=== PATIENT | female | born 1990 | race Caucasian/White ===

== ENCOUNTER → 2020-01-03 12:25 | Outpatient (BNVA) | payer SELFPAY | PROVIDERS: Family Provider Nurse Practitioner Family; PCP Family Medicine; Visit Provider Nurse Practitioner Family | DX: J32.9 Chronic sinusitis, unspecified (principal) | CPT/HCPCS: 87804 ==

== ENCOUNTER 2020-01-10 19:11 | Emergency (ER) | payer SELFPAY ==
--- NOTE | 2020-01-10 19:13 | XR_ITS ---
WS: [id number] PROCEDURE: XR chest 2V* [id number] CLINICAL INFORMATION: cough COMPARISON: 010 FINDINGS: Heart: Normal cardiac silhouette. Lungs: Lungs are clear. No consolidation or pleural fluid. No acute pulmonary infiltrates. Bones: Normal visualized bony structures. XR/XR chest 2V* [id number] IMPRESSION: Normal chest
[2020-01-10 19:15] VITALS: BP 159/112; PULSE 85; RESP 19; TEMP 37.2; O2SAT 97; BMI 41.3
--- NOTE | 2020-01-10 19:22 | ED_ITS ---
HPI - SOB/Dyspnea General: Chief Complaint: Shortness of Breath/Dyspnea Stated Complaint: cough Time Seen by Provider: 01/10/20 19:21 Source: patient Mode of arrival: ambulatory Limitations: no limitations History of Present Illness: HPI Narrative: Patient comes in today with complaints of cough fever and chills on and off for the last 2 weeks. Patient reports that about a week ago she was seen at [facility] and was treated with amoxicillin for an upper respiratory infection. Patient reports that fever went away but over the last 2 days she is developed a fever again and her symptoms of cough and congestion increased again. Patient appears mildly unwell. Patient denies any chronic medical illnesses and denies asthma. Patient reports that her daughters have been ill with a cold before she got sick both times. Review of Systems General: Reports: 10 or more systems reviewed and unremarkable except in HPI and below ENMT: Reports: nasal congestion Resp: Reports: non-productive cough PFSH ED PFSH: Statuses (acute, chronic, etc) shown below reflect problem list status as previously entered and may not be historically accurate Social History (Updated 01/03/20 @ 10:29 by Mita Starks LPN, RT) Smoking and tobacco status: former smoker Quit status (tobacco): has quit using tobacco Year quit tobacco: 2014 Second hand smoke exposure: No Alcohol intake: never Lives independently: Yes Housing: House Marital status: Single Current occupational status: employed Current occupation: [employer] History of recent travel: No Current gender identity: Female Female Reproductive History: Date of last menstrual period: 01/06/20 Physical Exam Const: COMMON NORMALS: no apparent distress and oriented x3 GENERAL APPEARANCE: cooperative HENMT: COMMON NORMALS: normocephalic, external ears normal, EAC's normal, TM's normal bilaterally and external nose normal HEAD & SCALP: normal to inspection and normocephalic FACE & SINUS: normal facial exam NOSE: external nose normal GENERAL EAR: hearing not grossly impaired EXTERNAL E AR: Yes external ears normal EXTERNAL AUDITORY CANAL: EAC's normal TYMPANIC MEMBRANE: TM's normal bilaterally MOUTH: oral and palatal mucosa normal THROAT: posterior oropharynx abnormal erythema Eye: COMMON NORMALS: PERRL and EOMs intact bilaterally PUPIL: Yes PERRL Neck/C-Spine: COMMON NORMALS: full ROM and no lymphadenopathy Lymph: LYMPHATIC: no lymphedema noted Chest: COMMONS NORMALS: inspection of chest normal and palpation of chest normal Resp: COMMON NORMALS: normal respiratory effort AUSCULTATION: diminished lung sounds Cardio: COMMON NORMALS: regular rate and regular rhythm RATE: regular rate RHYTHM: regular rhythm GI: COMMON NORMALS: normal to inspection, nondistended, normoactive bowel sounds and non-tender : COMMON NORMALS: Yes no CVA tenderness BLADDER/KIDNEY EXAM: Yes no CVA tenderness Back/Pelvis: COMMON NORMALS: no CVA tenderness and thoracic and lumbar spine normal to inspection Extremity: COMMON NORMALS: normal to inspection GENERAL: No edema Neuro: COMMON NORMALS: oriented x3, moves all extremities and no focal motor deficits Psych: COMMON NORMALS: mental status grossly normal and cooperative Skin: COMMON NORMALS: no rashes or lesions noted GENERAL SKIN EXAM: no rashes or lesions noted Course Vital Signs: Vital signs: Vital Signs Temperature 98.9 F 01/10/20 19:15 Pulse Rate 94 01/10/20 20:12 Respiratory Rate 20 H 01/10/20 20:12 Blood Pressure 159/112 01/10/20 19:15 Pulse Oximetry 99 01/10/20 20:12 MDM - SOB/Dyspnea MDM Narrative: Medical decision making narrative: Patient comes in today with cough and congestion for last 2 weeks. Patient describes 2 separate incidents of illness. Patient reports that her daughter was similarly ill over the last 2 weeks. On exam patient has some decreased lung sounds. Skin is warm and dry color is pink. Differential diagnosis includes pneumonia, influenza, bronchitis, asthma. X-ray noted no infiltrates. Flu test was positive for type B flu. We dosed patient with dexamethasone 10 mg for bronchial airway sounds. Patient was encouraged to drink plenty of fluids continue with Tylenol and ibuprofen. Patient reports understanding agreed to plan. Lab Data: Labs: Lab Results 01/10/20 Range/Units 20:05 Influenza Type A A g Negative (Negative) POC Influenza B Ag Positive H (Negative) Discharge Plan Discharge Patient Disposition: Home, Self-Care Clinical Impression: Influenza Condition: Stable Prescriptions: New oseltamivir 75 mg capsule 75 mg PO BID 5 Days Qty: 10 RF: 0 Discharge Orders: Discharge Order (Routine); Ordered 01/10/20 Ordered By: Kurt Sesay Referrals: Mita Patel FNP [Family Provider] - Edilia Amos MD [Primary Care Provider] - Discharge Diet: Usual diet Discharge Activity: Increase activity as tolerated Patient Instructions: Influenza (ED) Activity Restrictions/Additional Instructions: drink plenty of fluids Acetaminophen and ibuprofen for pain and fever Medications as directed Follow-up as needed Return to ER for increased difficulty breathing or new concerns Stand Alone Forms: Work/School Release Coding Level of Care Code 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
--- NOTE | 2020-01-10 19:41 | PC.NURSE ---
pt sitting in chair. no needs at this time.
[2020-01-10] MEDS: ipratropium-albuterol 3 mL Neb INHALATION (20:10)
[2020-01-10 20:12] VITALS: PULSE 94; RESP 20; O2SAT 99
[2020-01-10 20:29] LABS: Influenza A by IFA Negative (Negative); Influenza B by IFA Positive (Negative)
[2020-01-10] MEDS: dexamethasone 10 mg/mL INJ IM (20:51)
[2020-01-10 20:52] VITALS: BP 116/62; PULSE 78; RESP 16; O2SAT 98
== END 2020-01-10 20:55 | disposition home or self-care (01) ==
PROVIDERS: Emergency Provider Nurse Practitioner Family; Family Provider Nurse Practitioner Family; PCP Family Medicine
DX: J11.1 Influenza due to unidentified influenza virus with other respiratory manifestations (principal); Z87.891 Personal history of nicotine dependence
CPT/HCPCS: 71046; 87804; 94640; 96372; 99282; 99283; J1100

== ENCOUNTER → 2020-02-21 14:47 | Outpatient (BNVA) | payer SELFPAY | PROVIDERS: Family Provider Nurse Practitioner Family; PCP Family Medicine; Visit Provider Family Medicine | DX: J02.9 Acute pharyngitis, unspecified (principal); M54.32 Sciatica, left side | CPT/HCPCS: 87081; 87880 ==

== ENCOUNTER 2020-12-04 19:56 | Emergency (ER) | payer SELFPAY ==
[2020-12-04 20:48] VITALS: BP 160/98; PULSE 71; RESP 16; TEMP 36.3; O2SAT 99; BMI 47.4
--- NOTE | 2020-12-04 21:54 | W.ED.ABDPA2 ---
HPI - Abdominal Pain General: Chief Complaint: Abdominal Pain Stated Complaint: upper right abdominal pain, hard to breathe Time Seen by Provider: 12/04/20 21:49 History of Present Illness: HPI narrative: Patient planes about abdominal pain since 0 200 yesterday. Said that is continued hurts throughout the day and hurts worse after she eats. Has no other history abdominal problems. Has felt nauseated but has not vomited. No fever chills. MD elicited complaint: abdominal pain Pertinent past history: none Onset (ago): day(s) Pain Consistency: constant Location: RUQ Severity: moderate Quality: stabbing Radiation: back Exacerbating factors: eating Relieving factors: nothing Associated Symptoms: Reports nausea; Denies chills and fever(s) Related Data: Date of Last Menstrual Period: 01/06/20 Review of Systems Const: Denies: fever(s), chills or body aches Eyes: Denies: change in vision or blurry vision ENMT: Denies: throat pain or nasal congestion Card: Denies: chest pain or dyspnea on exertion Resp: Denies: dyspnea, productive cough or non-productive cough GI: Reports: abdominal pain and nausea Musc: Denies: extremity pain Skin/Breast: Denies: rash Neuro: Denies: headache(s) Psych: Denies: anxiety or depression Aashish/Lymph: Denies: easy bruising PFS ED PFSH: Medical History (Updated 12/04/20 @ 23:43 by CARTER Song) Migraine Spinal stenosis of lumbar region Surgical History Hx of appendectomy Hx of tonsillectomy Social History Smoking and tobacco status: former smoker Quit status (tobacco): has quit using tobacco Year quit tobacco: 2014 Second hand smoke exposure: No Alcohol intake: never Lives independently: Yes Housing: House Marital status: Single Current occupational status: employed Current occupation: [employer] History of recent travel: No Current gender identity: Female Female Reproductive History: Date of last menstrual period: 01/06/20 Physical Exam Const: COMMON NORMALS: no acute distress, average body habitus and patient oriented x3 HENMT: COMMON NORMALS: normocephalic HEAD & SCALP: normal to inspection and normocephalic FACE & SINUS: normal facial exam Eye: COMMON NORMALS: conjunctivae normal GENERAL EYE: appearance normal, both eyes and all related structures CONJUNCTIVA: Yes conjunctivae normal Neck/C-Spine: COMMON NORMALS: no JVD Chest: COMMONS NORMALS: normal inspection of the chest Resp: COMMON NORMALS: normal respiratory effort and clear to auscultation bilaterally AUSCULTATION: clear to auscultation bilaterally Cardio: COMMON NORMALS: no JVD, regular rate and regular rhythm RATE: regular rate RHYTHM: regular rhythm GI: COMMON NORMALS: Normal to inspection, nondistended, normoactive bowel sounds present Extremity: COMMON NORMALS: normal to inspection and full ROM Neuro: COMMON NORMALS: patient oriented x3 Course Vital Signs: Vital signs: Vital Signs Temperature 97.3 F L 12/04/20 20:48 Pulse Rate 70 12/04/20 23:33 Respiratory Rate 12 12/04/20 23:33 Blood Pressure 148/73 12/04/20 23:33 Pulse Oximetry 99 12/04/20 23:33 MDM - Abdominal Pain MDM Narrative: Medical decision making narrative: Discussed lab and radiology results with Dr. Solorio. Reexamined patient patient basically pain-free not nauseated. Patient agrees to follow-up Dr. Schaefer as scheduled by the hospital. Lab Data: Labs: Lab Results 12/04/20 12/04/20 12/04/20 Range/Units 22:00 22:10 22:10 WBC 13.6 H (4.0-10.0) 10^3/ uL RBC 4.56 (4.1-5.3) 10^6/u L Hgb 13.1 (11.5-15.3) g/dL Hct 40.8 (37.0-47.0) % MCV 89.5 (81-99) fL MCH 28.7 (28.0-34.0) pg MCHC 32.1 (30.0-36.0) g/dL RDW 12.5 (12.1-15.1) % Plt Count 304 (130-400) 10^3/c mm MPV 10.6 H (7.4-10.4) fL Neut % (Auto) 71.7 % Lymph % (Auto) 19.7 % [place] % (Auto) 6.9 % Eos % (Auto) 1.0 % Baso % (Auto) 0.4 % Neut # (Auto) 9.72 H (1.8-7.7) 10^3/u L Lymph # (Auto) 2.7 (0.8-4.8) 10^3/u L [place] # (Auto) 0.9 (0.2-0.9) 10^3/u L Eos # (Auto) 0.1 (0.0-0.8) 10^3/u L Baso # (Auto) 0.1 (0.0-0.1) 10^3/u L Nucleated RBC % (a uto) 0 % Nucleated RBCs # 0.0 /100WBC Sodium 136 (136-145) mmol/L Potassium 3.4 L (3.5-5.1) mmol/L Chloride 100 (98-107) mmol/L Carbon Dioxide 28 (22-29) mmol/L Anion Gap 11.4 (5-19) BUN 16 (6-20) mg/dL Creatinine 0.8 (0.5-0.9) mg/dL GFR Calculation 83.7 L (90-130) mL/min Glucose 110 (65-115) mg/dL Calculated Osmolal ity 284 L (285-295) mOsm/k g Calcium 9.9 (8.5-10.5) mg/dL Total Bilirubin 0.3 (0.15-1.2) mg/dL AST 12 (0-32) U/L ALT 13 (0-33) U/L Alkaline Phosphata se 101 (35-105) IU/L Total Protein 7.6 (6.6-8.7) g/dL Albumin 4.3 (3.5-5.2) g/dL Globulin 3.3 (1.3-4.6) g/dL Lipase 36 (13-60) U/L HCG, Qual (Negative) Urine Color Yellow (Yellow) Urine Appearance Clear (CLEAR) Urine pH 5.0 (5-7) Ur Specific Gravit y 1.025 (1.005-1.030) Urine Protein Neg (Negative) Urine Glucose (UA) Norm (Normal) Urine Ketones Negative (Negative) Urine Blood Neg (Negative) Urine Nitrate Negative (Negative) Urine Bilirubin Neg (Negative) Urine Urobilinogen Norm (Negative) mg/dL Ur Leukocyte Sammie ase Negative (Negative) 12/04/20 Range/Units 22:10 WBC (4.0-10.0) 10^3/ uL RBC (4.1-5.3) 10^6/u L Hgb (11.5-15.3) g/dL Hct (37.0-47.0) % MCV (81-99) fL MCH (28.0-34.0) pg MCHC (30.0-36.0) g/dL RDW (12.1-15.1) % Plt Count (130-400) 10^3/c mm MPV (7.4-10.4) fL Neut % (Auto) % Lymph % (Auto) % [place] % (Auto) % Eos % (Auto) % Baso % (Auto) % Neut # (Auto) (1.8-7.7) 10^3/u L Lymph # (Auto) (0.8-4.8) 10^3/u L [place] # (Auto) (0.2-0.9) 10^3/u L Eos # (Auto) (0.0-0.8) 10^3/u L Baso # (Auto) (0.0-0.1) 10^3/u L Nucleated RBC % (a uto) % Nucleated RBCs # /100WBC Sodium (136-145) mmol/L Potassium (3.5-5.1) mmol/L Chloride (98-107) mmol/L Carbon Dioxide (22-29) mmol/L Anion Gap (5-19) BUN (6-20) mg/dL Creatinine (0.5-0.9) mg/dL GFR Calculation (90-130) mL/min Glucose (65-115) mg/dL Calculated Osmolal ity (285-295) mOsm/k g Calcium (8.5-10.5) mg/dL Total Bilirubin (0.15-1.2) mg/dL AST (0-32) U/L ALT (0-33) U/L Alkaline Phosphata se (35-105) IU/L Total Protein (6.6-8.7) g/dL Albumin (3.5-5.2) g/dL Globulin (1.3-4.6) g/dL Lipase (13-60) U/L HCG, Qual Negative (Negative) Urine Color (Yellow) Urine Appearance (CLEAR) Urine pH (5-7) Ur Specific Gravit y (1.005-1.030) Urine Protein (Negative) Urine Glucose (UA) (Normal) Urine Ketones (Negative) Urine Blood (Negative) Urine Nitrate (Negative) Urine Bilirubin (Negative) Urine Urobilinogen (Negative) mg/dL Ur Leukocyte Sammie ase (Negative) Discharge Plan Discharge Patient Disposition: Home Clinical Impression: Cholelithiasis Qualifiers: Cholelithiasis location: gallbladder Cholecystitis presence: without cholecystitis Biliary obstruction: without biliary obstruction Qualified Code(s): K80.20 - Calculus of gallbladder without cholecystitis without obstruction Condition: Stable Prescriptions: New hydrocodone-acetaminophen 5-325 mg tablet 1 tab PO TID PRN (Reason: pain) Qty: 10 RF: 0 Zofran 4 mg tablet 4 mg PO Q8H 3 Days Qty: 9 RF: 0 No Action ibuprofen 800 mg tablet 800 mg PO Q8H Qty: 30 RF: 0 dexamethasone sodium phosphate 4 mg/mL solution 4 mg IM ONCE Qty: 1 RF: 0 diclofenac sodium 75 mg tablet,delayed release (DR/EC) 75 mg PO BID PRN (Reason: pain) Qty: 60 RF: 0 Discharge Orders: Discharge ED (Routine); Ordered 12/04/20 Ordered By: Obie Schmitt Referrals: Mita Patel FNP [Primary Care Provider] - Discharge Diet: As Directed Discharge Activity: Resume usual activity Patient Instructions: Cholecystitis (ED) Activity Restrictions/Additional Instructions: Follow-up with medical provider as directed. Take medications as prescribed. Return to the ER or your medical provider if condition worsens. Please read and understand discharge instructions. If any questions ask please. Low-fat diet no grease. Follow-up with Dr. Elizondo as scheduled by the hospital they should be contacting you with an appointment. Coding Level of Care Code ED [employer] Manager for Montse Fwd Exam Comprehensive
--- NOTE | 2020-12-04 21:56 | CTR_ITS ---
PROCEDURE INFORMATION: Exam: CT Abdomen And Pelvis With Contrast Exam date and time: 12/04/2020 10:17 PM Age: 30 years old Clinical indication: Abdominal pain; Prior surgery; Surgery type: Appy; Patient HX: Epigastric pain with nausea; Additional info: Ruq pain, abdominal pain TECHNIQUE: Imaging protocol: Computed tomography of the abdomen and pelvis with intravenous contrast. Radiation optimization: All CT scans at this facility use at least one of these dose optimization techniques: automated exposure control; mA and/or kV adjustment per patient size (includes targeted exams where dose is matched to clinical indication); or iterative reconstruction. Contrast material: OMNI 300; Contrast volume: 95 ml; Contrast route: INTRAVENOUS (IV); COMPARISON: No relevant prior studies available. RADIATION DOSE METRICS: Total DLP (mGy-cm): 1797.13 FINDINGS: Liver: There is no focal abnormality within the liver. There is mild enlargement of the liver. Liver is approximately 22 cm in height. Gallbladder and bile ducts: Multiple calcified gallstones are present. There is mild gallbladder wall thickening which could represent cholecystitis. Correlation with clinical findings is suggested. Pancreas: The pancreas is normal. Spleen: The spleen is normal. Adrenal glands: The adrenal glands are normal. Kidneys and ureters: The kidneys are normal. There is no evidence of renal or ureteral calcifications. There is no evidence of hydronephrosis. Stomach and bowel: Unremarkable. No obstruction. No mucosal thickening. Appendix: Not identifiedThere is no evidence of colitis/diverticulitis. Intraperitoneal space: Unremarkable. No free air. No significant fluid collection. Vasculature: Unremarkable. No abdominal aortic aneurysm. Lymph nodes: Unremarkable. No enlarged lymph nodes. Urinary bladder: Unremarkable as visualized. Reproductive: Unremarkable as visualized. Bones/joints: There is bilateral L5 spondylolysis without spondylolisthesis. Soft tissues: Unremarkable. CT/CT abdomen pelvis w con* [id number] IMPRESSION: Cholelithiasis and possible cholecystitis. Radiation Dose CTDIVOL = (mGy): DLP = 1797.13 (mGy-cm)
[2020-12-04 22:12] VITALS: BP 156/86; PULSE 73; RESP 14; O2SAT 99
[2020-12-04] MEDS: lidocaine 2% viscous 15 ML, aluminum-mag hydrox-simethicon 30 ML, sucralfate oral liq 1 GM PO (22:15)
[2020-12-04] MEDS: sodium chloride 0.9% 1,000 ML 999 ML IV (22:18)
[2020-12-04 22:25] LABS: Add Urine Microscopic? NO
[2020-12-04 22:29] LABS: Basophils # 0.1 10^3/uL (0.0-0.1); Basophils % 0.4 %; Eosinophils # 0.1 10^3/uL (0.0-0.8); Hematocrit 40.8 % (37.0-47.0); Hemoglobin 13.1 g/dL (11.5-15.3); Lymphocytes # 2.7 10^3/uL (0.8-4.8); Lymphocytes % 19.7 %; Mean Corpuscular HGB Conc 32.1 g/dL (30.0-36.0); Mean Corpuscular Hemoglobin 28.7 pg (28.0-34.0); Mean Corpuscular Volume 89.5 fL (81-99); Mean Platelet Volume 10.6 fL (7.4-10.4); Monocytes # 0.9 10^3/uL (0.2-0.9); Monocytes % 6.9 %; Neutrophils # 9.72 10^3/uL (1.8-7.7); Neutrophils % 71.7 %; Nucleated Red Blood Cells % 0 %; Platelet Count 304 10^3/cmm (130-400); Red Blood Count 4.56 10^6/uL (4.1-5.3); Red Cell Distribution Width 12.5 % (12.1-15.1); White Blood Count 13.6 10^3/uL (4.0-10.0)
[2020-12-04 22:35] LABS: HCG Qualitative Urine. Negative (Negative)
[2020-12-04 22:36] LABS: Urine Color Yellow (Yellow)
[2020-12-04 22:37] LABS: Bilirubin Urine Neg (Negative); Blood Urine Neg (Negative); Glucose Urine UA Norm (Normal); Ketones Urine Negative (Negative); Leukocyte Esterase Urine Negative (Negative); Nitrate Urine Negative (Negative); Protein Urine Neg (Negative); Specific Gravity, Urine 1.025 (1.005-1.030); Urine Appearance Clear (CLEAR); Urobilinogen Urine Norm (Negative)
[2020-12-04] MEDS: ondansetron 2 mg/ML SDV 2 mL 4 MG IVP (22:40)
[2020-12-04] MEDS: ketorolac 30 mg/mL INJ IVP (22:42)
[2020-12-04 22:47] LABS: Alanine Aminotransferase 13 U/L (0-33); Albumin Level 4.3 g/dL (3.5-5.2); Alkaline Phosphatase 101 IU/L (35-105); Anion Gap 11.4 (5-19); Aspartate Amino Transferase 12 U/L (0-32); Blood Urea Nitrogen 16 mg/dL (6-20); Calcium 9.9 mg/dL (8.5-10.5); Carbon Dioxide 28 mmol/L (22-29); Chloride 100 mmol/L (98-107); Globulin 3.3 g/dL (1.3-4.6); Glomerular Filtration Rate 83.7 mL/min (90-130); Glucose 110 mg/dL (65-115); Lipase 36 U/L (13-60); Osmolality Calculated 284 mOsm/kg (285-295); Potassium 3.4 mmol/L (3.5-5.1); Sodium 136 mmol/L (136-145); Total Bilirubin 0.3 mg/dL (0.15-1.2); Total Protein 7.6 g/dL (6.6-8.7)
[2020-12-04] MEDS: iohexol 300 mg/mL 100 mL Btl IV (22:54)
[2020-12-04 23:33] VITALS: BP 148/73; PULSE 70; RESP 12; O2SAT 99
[2020-12-05] MEDS: HYDROcodone-acetaminophen 7.5-325 mg Tablet 1 TAB PO (00:03)
[2020-12-05 00:04] VITALS: BP 107/66; PULSE 84; RESP 12; O2SAT 98
--- NOTE | 2020-12-05 13:04 | DCPLANNER ---
manager domestic had message to schedule a follow up appointment for patient with general surgery. manager domestic emailed both Yaneth and Ana, patients information. Patients information will be printed and reviewed.
--- NOTE | 2020-12-10 08:13 | DCPLANNER ---
Patient has a follow up appointment scheduled for Wednesday, December 13, 2020 at 9:[address] Schaefer at [facility] General Surgery. Clinic will call patient with appointment information.
--- NOTE | 2020-12-31 08:05 | DCPLANNER ---
Patient had a follow up appointment scheduled fo r01.15. with general surgery - patient did attend appointment.
== END 2020-12-05 00:21 | disposition home or self-care (01) ==
PROVIDERS: Emergency Medicine; Emergency Provider Nurse Practitioner Family; PCP Nurse Practitioner Family
DX: K80.20 Calculus of gallbladder without cholecystitis without obstruction (principal); Z87.891 Personal history of nicotine dependence
CPT/HCPCS: 12345; 74177; 80053; 81003; 81025; 83690; 85025; 96361; 96374; 96375; 99283; J1885; J2405; J7030; Q9967

== ENCOUNTER → 2020-12-16 09:40 | Outpatient (BNVA) | payer SELFPAY | PROVIDERS: PCP Nurse Practitioner Family; Visit Provider Surgery | DX: Z11.59 Encounter for screening for other viral diseases (principal); K80.20 Calculus of gallbladder without cholecystitis without obstruction | CPT/HCPCS: 87635 ==

== ENCOUNTER 2020-12-18 13:53 | Day surgery (SDC) | payer SELFPAY ==
[2020-12-17 15:10] VITALS: BMI 47.1
[2020-12-18] VITALS (11 sets, daily range): BP systolic 105–158; BP diastolic 63–99; PULSE 57–95; RESP 16–26; TEMP 36.1–37.1; O2SAT 95–100
--- NOTE | 2020-12-18 12:44 | W.PM.OPSUD ---
Surgery/Procedure H&P Update DATE OF PROCEDURE: December 18, 2020 DATE H&P PERFORMED: 12/13/20 H&P UPDATE INFORMATION: I have reviewed H&P completed within last 30 days, I have examined patient prior to procedure and No changes to prior documentation PLANNED PROCEDURE: Operation Date: 12/18/20 15:25 Proposed Procedures p Laparoscopic Cholecystectomy 55924 K80.20(Not Applicable) - Tyler Schaefer MD
--- NOTE | 2020-12-18 14:21 | P.ANESASSM_ITS ---
Pre-Anesthetic Assessment Pre-Anesthetic Assessment: Height/Weight: Height 1.73 m Weight 140.614 kg Preop Diagnosis: Cholelithiasis Proposed Procedure: Operation Date: 12/18/20 15:25 Proposed Procedures p Laparoscopic Cholecystectomy 20585 K80.20(Not Applicable) - Tyler Schaefer MD Familial anesthetic complications: None Was Beta Kenia taken within 24 hours: N/A Last intake: NPO > 8hrs Social: Social History: No alcohol and No tobacco Exam: Pre-Anes Outpt Exam: alert, oriented x 3, clear to auscultation bilaterally and regular rate & rhythm Airway: Cervical ROM: WNL MP: 3 Dentition: Full CV/HEM: Comments: naturally slow heart rate Metabolic: Metabolic: Morbid obesity Anesthetic Plan: ASA status: 2 Anesthesia: General Risk of > 500 ml blood loss (7ml/kg in children): No PFSH Anesthesia PFSH: Medical History (Updated 12/13/20 @ 11:43 by Tyler Schaefer MD) Migraine Spinal stenosis of lumbar region Surgical History (Updated 12/18/20 @ 12:43 by Tyler Schaefer MD) Hx of appendectomy Hx of tonsillectomy Status post laparoscopic cholecystectomy (12/18/20) Social History Smoking and tobacco status: former smoker Quit status (tobacco): has quit using tobacco Year quit tobacco: 2014 Second hand smoke exposure: No Alcohol intake: never Lives independently: Yes Housing: House Marital status: Single Current occupational status: employed Current occupation: [employer] History of recent travel: No Current gender identity: Female Female Reproductive History: Date of last menstrual period: 01/06/20 Data Anesthesia Cardiac Studies: No Data to Display
[2020-12-18] MEDS: sodium chloride 0.9% 1,000 ML 30 ML IV (14:35)
[2020-12-18 14:37] LABS: OR HCG Qualitative Urine Negative (Negative)
--- NOTE | 2020-12-18 15:47 | PM.OP ---
Operative Report Date of procedure: December 18, 2020 Pre-op Diagnosis: Cholelithiasis Post-op diagnosis: same Procedure Done: Laparoscopic cholecystectomy Specimens removed/disposition: Gallbladder Surgeon: Tyler Schaefer Anesthesia: General Condition: stable Disposition: PACU Procedure: The patient was taken to the operating room and was intubated under general anesthesia. After the antibiotic had been administered, the abdomen was prepped and draped in a sterile manner. Using a #15 blade, a 1 centimeter infraumbilical curvilinear incision was made and using an open Preston technique the peritoneal cavity was entered. A 10 millimeter port was placed and 15 millimeters of pneumoperitoneum was created. A 10 millimeter, 30 degrees scope was then introduced. Three 5 millimeter ports were placed in the epigastric, midclavicular and the anterior axillary line two fingerbreadths below the costal margin on the right side under the direct visualization. Ratcheted forceps were introduced into the lateral most port and was used to retract the fundus of the gallbladder cephalad and using forceps the infundibulum of the gallbladder was retracted laterally. Using L-hook cautery the peritoneum overlying the Calot's triangle was opened medially and laterally until the cystic duct and the cystic artery were skeletonized. There was some bleeding from the posterior branch of the cystic artery which was controlled with a combination of clips and electrocautery. Dissection was carried along the body of the gallbladder and after ensuring critical view of safety, 4 clips applied on the cystic duct and 3 clips applied on the cystic artery and cut leaving, 3 clips on the remaining portion of the duct and 2 clips on the remaining portion of the artery. The rest of the gallbladder was dissected off the liver using L-hook cautery. There was no bleeding or bile leaking noted from the gallbladder fossa and the clips appeared to be in place. An EndoCatch bag was introduced to remove the gallbladder. All the ports were removed under direct visualization and there was no bleeding noted from the port sites. The fascia of the umbilicus was closed using [id number] 0 Vicryl sutures and the subcutaneous tissue was approximated using 3-0 Vicryl sutures. The skin at all four ports were closed using 4-0 Monocryl and Dermabond. A total of 10 millimeters of 0.5% Marcaine was infiltrated around the port sites. The patient was stable throughout the procedure.
[2020-12-18] MEDS: fentaNYL 50 mcg/mL INJ 2mL IVP ×2 (16:03→16:15)
[2020-12-18] MEDS: ondansetron 2 mg/ML SDV 2 mL 4 MG IVP (16:15)
[2020-12-18] MEDS: HYDROcodone-acetaminophen 5-325 mg Tablet 1 TAB PO (17:45)
--- NOTE | 2020-12-18 18:38 | ANE.PACU2 ---
Inpatient post-anesthesia follow up: Airway intact: Yes Vital signs: Temperature 98.7 F Pulse Rate 62 Respiratory Rate 18 Blood Pressure 111/68 Pulse Oximetry 98 Oxygen Delivery Me thod Room Air Oxygen Flow Rate 8 Fraction of Inspir ed Oxygen Hydration adequate: Yes Nausea and vomiting: No Pain level: 1 Mental status: Baseline
== END 2020-12-18 17:55 | disposition home or self-care (01) ==
LOC: OR 13:53
PROVIDERS: Anesthesiology; PCP Nurse Practitioner Family; Visit Provider Surgery
PROC: 0FT44ZZ Resection of Gallbladder, Percutaneous Endoscopic Approach (ICD-10-PCS; CPT 47562; principal; 2020-12-18 15:15)
DX: K80.10 Calculus of gallbladder with chronic cholecystitis without obstruction (principal); E66.01 Morbid (severe) obesity due to excess calories; Z68.42 Body mass index [BMI] 45.0-49.9, adult; Z87.891 Personal history of nicotine dependence
CPT/HCPCS: 47562; 12345; 81025; 84703; 88304; J0330; J0690; J1100; J1200; J1885; J2250; J2405; J2704; J2710; J3010; J3490; J7030

== ENCOUNTER → 2021-03-18 15:05 | Outpatient (BNVA) | payer SELFPAY | PROVIDERS: PCP Nurse Practitioner Family; Visit Provider Nurse Practitioner Family | DX: M79.604 Pain in right leg (principal); M79.671 Pain in right foot; M25.571 Pain in right ankle and joints of right foot | CPT/HCPCS: 73590; 73610; 73620 ==

== ENCOUNTER → 2021-04-02 09:06 | Outpatient (BNVA) | payer SELFPAY | PROVIDERS: PCP Nurse Practitioner Family; Visit Provider Nurse Practitioner Family | DX: M25.571 Pain in right ankle and joints of right foot (principal); M79.671 Pain in right foot | CPT/HCPCS: 73610; 73630 ==

== ENCOUNTER → 2021-05-09 11:59 | Outpatient (BNVA) | payer SELFPAY | PROVIDERS: PCP Nurse Practitioner Family; Visit Provider Nurse Practitioner Family | DX: J02.9 Acute pharyngitis, unspecified (principal); J01.00 Acute maxillary sinusitis, unspecified | CPT/HCPCS: 87071; 87880 ==

== ENCOUNTER → 2021-07-15 12:07 | Outpatient (BNVA) | payer OTHER, SELFPAY | PROVIDERS: PCP Nurse Practitioner Family; Visit Provider Family Medicine | DX: Z20.822 Contact with and (suspected) exposure to COVID-19 (principal) | CPT/HCPCS: 87635 ==

== ENCOUNTER → 2021-12-11 16:44 | Outpatient (BNVA) | payer BC, SELFPAY | PROVIDERS: PCP Nurse Practitioner Family; Visit Provider Nurse Practitioner Family | DX: Z20.822 Contact with and (suspected) exposure to COVID-19 (principal) | CPT/HCPCS: 87635 ==

== ENCOUNTER 2022-02-06 18:08 | Emergency (ER) | payer BC, MEDICAID, SELFPAY ==
[2022-02-06] VITALS (12 sets, daily range): BP systolic 105–142; BP diastolic 71–97; PULSE 66–94; RESP 16–18; TEMP 36.9; O2SAT 94–99; BMI 44.8
--- NOTE | 2022-02-06 19:20 | XRR_ITS ---
PROCEDURE INFORMATION: Exam: XR Chest Exam date and time: 02/06/2022 7:20 PM Age: 31 years old Clinical indication: Cough; Additional info: Fever, vomiting TECHNIQUE: Imaging protocol: XR of the chest. Views: 1 view. COMPARISON: CR XR chest 2V* [id number] 01/10/2020 7:47 PM FINDINGS: Lungs: Lungs are clear bilaterally. Pleural spaces: No pleural effusion. No pneumothorax. Heart/Mediastinum: The cardiac silhouette and mediastinal contours are unremarkable. Bones/joints: Unremarkable for age. Soft tissues: Patient has bilateral nipple piercings. XR/XR chest 1V portable [id number] IMPRESSION: 1. No acute cardiopulmonary process. 2. Incidental/nonacute findings are listed in the report.
--- NOTE | 2022-02-06 19:53 | W.ED.COVID ---
HPI - COVID General: Chief Complaint: COVID symptoms Stated Complaint: N\V Time Seen by Provider: 02/06/22 18:53 Source: patient Triage information: No fever, cough or shortness of breath. No known COVID + exposure last 14 days History of Present Illness: Healthy 31-year-old female presenting with symptoms of nausea, with vomiting that started today. She has had a sick young child at home with the stomach flu so she figured this was her problem. No sore throat. No cough. No congestion. No significant fever today. Some aches. MD complaint: has COVID symptoms Prior covid testing: no COVID 19 common symptoms: positive fatigue, body aches and vomiting; negative fever(s), chills, cough, non-productive cough, productive cough, dyspnea, headache(s), loss of sense of smell and/or taste, throat pain, nasal congestion or diarrhea COVID 19 other sytmptoms: negative chest pain Onset (ago): hour(s) Severity: moderate Pertinent comorbid conditions: obesity Treatment prior to arrival: none COVID Results: SARS-CoV-2 RNA (RT-PCR) Not detected (NOT DETECTED) 12/11/21 16:44 12/11/21 Nasal/Oral Coronavirus 2019 PCR Not detected 12/16/20 09:40 12/16/20 SARS-CoV-2 (PCR) Not detected (NOT DETECT) 02/06/22 18:45 02/06/22 Coronavirus Type 229E (PCR) Not detected (NOT DETECT) 02/06/22 18:45 02/06/22 Review of Systems Const: Reports: body aches and fatigue; Denies: fever(s) or chills ENMT: Denies: throat pain or nasal congestion Card: Denies: chest pain Resp: Denies: dyspnea, productive cough or non-productive cough GI: Reports: vomiting; Denies: diarrhea Neuro: Denies: headache(s) PFSH ED PFSH: Medical History Migraine Spinal stenosis of lumbar region Surgical History Hx of appendectomy Hx of tonsillectomy Status post laparoscopic cholecystectomy (12/18/20) Social History (Updated 01/14/22 @ 14:42 by Mita Starks LPN, RTMaggie Smoking and tobacco status: former smoker Quit status (tobacco): has quit using tobacco Year quit tobacco: 2014 Second hand smoke exposure: No Alcohol intake: never Lives independently: Yes Household members: children Housing: House Marital status: Single service: No Current occupational status: employed Current occupation: [employer] History of recent travel: No Current gender identity: Female Special sloan needs: No Female Reproductive History: Date of last menstrual period: 01/06/20 Physical Exam Const: GENERAL APPEARANCE: cooperative; not frail appearing NUTRITIONAL APPEARANCE: obese ORIENTATION/CONSCIOUSNESS: Yes awake, Yes oriented to person, Yes oriented to place and Yes oriented to time HENMT: COMMON NORMALS: normocephalic and atraumatic HEAD & SCALP: normocephalic and atraumatic Eye: COMMON NORMALS: Equal, round and reactive pupils present and EOMs intact bilaterally PUPIL: Yes Equal, round and reactive pupils present Resp: COMMON NORMALS: normal respiratory effort, No use of accessory muscles and clear to auscultation bilaterally AUSCULTATION: clear to auscultation bilaterally Cardio: COMMON NORMALS: regular rate and regular rhythm RATE: regular rate RHYTHM: regular rhythm GI: COMMON NORMALS: Normal to inspection, nondistended, normoactive bowel sounds present Extremity: COMMON NORMALS: no pedal edema Neuro: JB COMA SCALE: document GCS findings Jb coma scale eye opening: Spontaneous Jb coma scale verbal response: Orientated Jb coma scale motor response: [place] commands [place] coma scale total score: 15 SENSORIUM/ORIENTATION: Yes oriented to person, Yes oriented to place and Yes oriented to time Course Vital Signs: Vital signs: Vital Signs Temperature 98.4 F 02/06/22 18:23 Pulse Rate 73 02/06/22 22:17 Respiratory Rate 18 02/06/22 22:17 Blood Pressure 116/79 02/06/22 22:17 Pulse Oximetry 98 02/06/22 22:17 [facility] - COVID Medical Decision Making 31-year-old female with 2 sick children at home. She was bringing her oldest child in for evaluation, when she began to become nauseated and threw up in the lobby. Symptoms are new in this patient. Her white blood cell count is 16. Her BMP is essentially normal. Urinalysis is contaminated. Liver enzymes are normal. PCR swab is positive for enterovirus/rotavirus. She will be treated symptomatically. She has received a liter of fluids here, with Zofran Reglan and Toradol. She is feeling improved. Lab Data : 02/06/22 20:05 02/06/22 20:05 Radiology Impressions Chest X-Ray 02/06/22 19:20 IMPRESSION: 1. No acute cardiopulmonary process. 2. Incidental/nonacute findings are listed in the report. Laboratory Results WBC 16.1 10^3/uL (4.0-10.0) H 02/06/22 20:05 RBC 5.11 10^6/uL (4.1-5.3) 02/06/22 20:05 Hgb 14.0 g/dL (11.5-15.3) 02/06/22 20:05 Hct 43.2 % (37.0-47.0) 02/06/22 20:05 MCV 84.5 fl (81-99) 02/06/22 20:05 MCH 27.4 pg (28.0-34.0) L 02/06/22 20:05 MCHC 32.4 g/dL (30.0-36.0) 02/06/22 20:05 RDW 13.0 % (12.1-15.1) 02/06/22 20:05 Plt Count 292 10^3/cmm (130-400) 02/06/22 20:05 MPV 10.6 fL (7.4-10.4) H 02/06/22 20:05 Neut % (Auto) 90.5 % 02/06/22 20:05 Lymph % (Auto) 3.7 % 02/06/22 20:05 [place] % (Auto) 5.0 % 02/06/22 20:05 Eos % (Auto) 0.2 % 02/06/22 20:05 Baso % (Auto) 0.3 % 02/06/22 20:05 Neut # (Auto) 14.58 10^3/uL (1.8-7.7) H 02/06/22 20:05 Lymph # (Auto) 0.6 10^3/uL (0.8-4.8) L 02/06/22 20:05 [place] # (Auto) 0.8 10^3/uL (0.2-0.9) 02/06/22 20:05 Eos # (Auto) 0.0 10^3/uL (0.0-0.8) 02/06/22 20:05 Baso # (Auto) 0.1 10^3/uL (0.0-0.1) 02/06/22 20:05 Nucleated RBC % (auto) 0 % 02/06/22 20:05 Nucleated RBCs # 0.0 /100WBC 02/06/22 20:05 Sodium 135 mmol/L (136-145) L 02/06/22 20:05 Potassium 4.1 mmol/L (3.5-5.1) 02/06/22 20:05 Chloride 102 mmol/L (98-107) 02/06/22 20:05 Carbon Dioxide 22 mmol/L (22-29) 02/06/22 20:05 Anion Gap 15.1 (5-19) 02/06/22 20:05 BUN 15 mg/dL (6-20) 02/06/22 20:05 Creatinine 0.7 mg/dL (0.5-0.9) 02/06/22 20:05 GFR Calculation 97.0 mL/min (90-130) 02/06/22 20:05 Glucose 133 mg/dL (65-115) H 02/06/22 20:05 Calculated Osmolality 283 mOsm/kg (285-295) L 02/06/22 20:05 Calcium 8.8 mg/dL (8.5-10.5) 02/06/22 20:05 Total Bilirubin 0.4 mg/dL (0.15-1.2) 02/06/22 20:05 AST 13 U/L (0-32) 02/06/22 20:05 ALT 15 U/L (0-33) 02/06/22 20:05 Alkaline Phosphatase 102 IU/L (35-105) 02/06/22 20:05 Total Protein 7.9 g/dL (6.6-8.7) 02/06/22 20:05 Albumin 4.5 g/dL (3.5-5.2) 02/06/22 20:05 Globulin 3.4 g/dL (1.3-4.6) 02/06/22 20:05 HCG, Qual Negative (Negative) 02/06/22 21:20 Urine Color Yellow (Yellow) 02/06/22 21:20 Urine Appearance Clear (CLEAR) 02/06/22 21:20 Urine pH 5 (5-7) 02/06/22 21:20 Ur Specific [place] 1.025 (1.005-1.030) 02/06/22 21:20 Urine Protein 1+ (Negative) H 02/06/22 21:20 Urine Glucose (UA) Norm (Normal) 02/06/22 21:20 Urine Ketones 1+ (Negative) H 02/06/22 21:20 Urine Blood Neg (Negative) 02/06/22 21:20 Urine Nitrate Negative (Negative) 02/06/22 21:20 Urine Bilirubin 1+ (Negative) H 02/06/22 21:20 Urine Urobilinogen Norm mg/dL (Negative) 02/06/22 21:20 Ur Leukocyte Esterase 1+ (Negative) H 02/06/22 21:20 Urine RBC 0-4 /hpf (0-2) H 02/06/22 21:20 Urine WBC 10-15 /hpf (0-5) H 02/06/22 21:20 Ur Squamous Epith Cells 55-80 /hpf (0-5) H 02/06/22 21:20 Amorphous Sediment Not Reportable 02/06/22 21:20 Urine Bacteria 4+ /hpf (NONE) H 02/06/22 21:20 Coronavirus 229E (PCR) Not detected (NOT DETECT) 02/06/22 18:45 Human Metapneumovir PCR Not detected (NOT DETECT) 02/06/22 21:14 Entero/Rhino (PCR) Detected (NOT DETECT) A 02/06/22 21:14 SARS-CoV-2 (PCR) Not detected (NOT DETECT) 02/06/22 18:45 SARS-CoV-2 RNA (RT-PCR) Not detected (NOT DETECTED) 12/11/21 16:44 12/11/21 Nasal/Oral Coronavirus 2019 PCR Not detected 12/16/20 09:40 12/16/20 SARS-CoV-2 (PCR) Not detected (NOT DETECT) 02/06/22 18:45 02/06/22 Coronavirus Type 229E (PCR) Not detected (NOT DETECT) 02/06/22 18:45 02/06/22 Discharge Plan Discharge Patient Disposition: Home Clinical Impression: Gastroenteritis Condition: Stable Prescriptions: New Zofran 4 mg tablet 4 mg PO Q6H PRN (Reason: nausea and vomiting) Qty: 10 0RF ketorolac 10 mg tablet 10 mg PO TID PRN (Reason: pain) Qty: 10 0RF Discontinued naproxen sodium [Aleve] 220 mg tablet 220 mg PO BID PRN0RF methylprednisolone [Medrol (Nate)] 4 mg tablets,dose pack See Rx Instructions PO PER PKG DIR Qty: 21 0RF Rx Instructions: PO PER PKG DIR Discharge Orders: Discharge ED (Routine); Ordered 02/06/22 Ordered By: Edi Jean Referrals: Mita Patel FNP [Primary Care Provider] - 4-7 days Patient Instructions: Gastroenteritis (ED) Activity Restrictions/Additional Instructions: Return for vomiting liquids or medications, fever greater than 100 despite treatment, worsening pain, shortness of breath, any other concerning symptoms. Coding Level of Care Code ED [employer]er for Chg Fwd Exam Comprehensive
[2022-02-06] MEDS: sodium chloride 0.9% 1,000 ML 999 ML IV (20:11)
[2022-02-06] MEDS: ondansetron 2 mg/ML SDV 2 mL 8 MG IVP (20:12)
[2022-02-06] MEDS: ketorolac 30 mg/mL INJ 15 MG IVP (20:16)
[2022-02-06 20:18] LABS: Basophils # 0.1 10^3/uL (0.0-0.1); Basophils % 0.3 %; Eosinophils % 0.2 %; Hematocrit 43.2 % (37.0-47.0); Lymphocytes # 0.6 10^3/uL (0.8-4.8); Lymphocytes % 3.7 %; Mean Corpuscular HGB Conc 32.4 g/dL (30.0-36.0); Mean Corpuscular Hemoglobin 27.4 pg (28.0-34.0); Mean Corpuscular Volume 84.5 fl (81-99); Mean Platelet Volume 10.6 fL (7.4-10.4); Monocytes # 0.8 10^3/uL (0.2-0.9); Neutrophils # 14.58 10^3/uL (1.8-7.7); Neutrophils % 90.5 %; Nucleated Red Blood Cells % 0 %; Platelet Count 292 10^3/cmm (130-400); Red Blood Count 5.11 10^6/uL (4.1-5.3); White Blood Count 16.1 10^3/uL (4.0-10.0)
[2022-02-06 20:49] LABS: Alanine Aminotransferase 15 U/L (0-33); Albumin Level 4.5 g/dL (3.5-5.2); Alkaline Phosphatase 102 IU/L (35-105); Anion Gap 15.1 (5-19); Aspartate Amino Transferase 13 U/L (0-32); Blood Urea Nitrogen 15 mg/dL (6-20); Calcium 8.8 mg/dL (8.5-10.5); Carbon Dioxide 22 mmol/L (22-29); Chloride 102 mmol/L (98-107); Globulin 3.4 g/dL (1.3-4.6); Glucose 133 mg/dL (65-115); Osmolality Calculated 283 mOsm/kg (285-295); Potassium 4.1 mmol/L (3.5-5.1); Sodium 135 mmol/L (136-145); Total Bilirubin 0.4 mg/dL (0.15-1.2); Total Protein 7.9 g/dL (6.6-8.7)
[2022-02-06 20:58] LABS: Adenovirus Not Detected (NOT DETECT); Chlamydia Pneumoniae Not Detected (NOT DETECT); Coronavirus 229E,HKU1,NL63,OC4 Not Detected (NOT DETECT); Human Metapneumovirus Not Detected (NOT DETECT); Human Rhinovirus/Enterovirus Detected (NOT DETECT); Influenza A Not Detected (NOT DETECT); Influenza A H1 Not Detected (NOT DETECT); Influenza A H1-2009 Not Detected (NOT DETECT); Influenza A H3 Not Detected (NOT DETECT); Influenza B Not Detected (NOT DETECT); Mycoplasma Pneumoniae Not Detected (NOT DETECT); Parainfluenza Virus Type 1 Not Detected (NOT DETECT); Parainfluenza Virus Type 2 Not Detected (NOT DETECT); Parainfluenza Virus Type 3 Not Detected (NOT DETECT); Parainfluenza Virus Type 4 Not Detected (NOT DETECT); Respiratory Syncytial Virus A Not Detected (NOT DETECT); Respiratory Syncytial Virus B Not Detected (NOT DETECT); SARS-COV-2 Not Detected (NOT DETECT)
[2022-02-06 21:14] LABS: Human Metapneumovirus Not Detected (NOT DETECT); Human Rhinovirus/Enterovirus Detected (NOT DETECT); Results from Genmark
[2022-02-06 22:08] LABS: Add Urine Microscopic? YES; Bilirubin Urine 1+ (Negative); Blood Urine Neg (Negative); Glucose Urine UA Norm (Normal); Ketones Urine 1+ (Negative); Leukocyte Esterase Urine 1+ (Negative); Nitrate Urine Negative (Negative); Protein Urine 1+ (Negative); Specific Gravity, Urine 1.025 (1.005-1.030); Urine Appearance Clear (CLEAR); Urine Color Yellow (Yellow); Urobilinogen Urine Norm (Negative); pH Urine 5 (5-7)
[2022-02-06 22:10] LABS: HCG Qualitative Urine. Negative (Negative)
[2022-02-06 22:16] LABS: Add Urine Culture? No; Bacteria Urine 4+ /hpf; RBC Urine 0-4 /hpf (0-2); Squamous Epithelial Cell Urine 55-80 /hpf (0-5)
[2022-02-06] MEDS: metoclopramide 5 mg/mL SDV 2 mL 10 MG IVP (23:06)
== END 2022-02-06 23:10 | disposition home or self-care (01) ==
PROVIDERS: Emergency Provider Emergency Medicine; PCP Nurse Practitioner Family
DX: K52.9 Noninfective gastroenteritis and colitis, unspecified (principal); Z87.891 Personal history of nicotine dependence; Z20.822 Contact with and (suspected) exposure to COVID-19
CPT/HCPCS: 71045; 80053; 81001; 81025; 85025; 87635; 87801; 96361; 96374; 96375; 99284; J1885; J2405; J2765; J7030

== ENCOUNTER 2022-04-27 09:58 | Outpatient (CLI) | payer BC, MEDICAID, SELFPAY ==
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
== END 2022-04-27 09:59 | disposition home or self-care (01) ==
PROVIDERS: PCP Nurse Practitioner Family; Visit Provider Nurse Practitioner Family
DX: M54.2 Cervicalgia (principal); M48.061 Spinal stenosis, lumbar region without neurogenic claudication; M54.6 Pain in thoracic spine; M47.817 Spondylosis without myelopathy or radiculopathy, lumbosacral region; V49.9XXA Car occupant (driver) (passenger) injured in unspecified traffic accident, initial encounter
CPT/HCPCS: 72040; 72072; 72100

== ENCOUNTER → 2022-07-07 16:28 | Outpatient (BNVA) | payer BC, MEDICAID, SELFPAY | PROVIDERS: PCP Nurse Practitioner Family; Visit Provider Nurse Practitioner Family | DX: M25.561 Pain in right knee (principal) | CPT/HCPCS: 73562 ==

== ENCOUNTER → 2023-02-10 15:20 | Outpatient (BNVA) | payer BC, MEDICAID, SELFPAY | PROVIDERS: PCP Nurse Practitioner Family; Visit Provider Nurse Practitioner Women's Health | DX: Z34.90 Encounter for supervision of normal pregnancy, unspecified, unspecified trimester (principal) | CPT/HCPCS: 80307; 81000; 81025; 84443; 85027; 86592; 86762; 86803; 86850; 86900; 87086; 87340; 87806 ==

== ENCOUNTER 2023-03-06 10:02 | Emergency (ER) | payer BC, MEDICAID, SELFPAY ==
[2023-03-06 10:05] VITALS: BP 133/79; PULSE 81; RESP 16; TEMP 36.9; O2SAT 100
--- NOTE | 2023-03-06 10:32 | ED_ITS ---
HPI - Syncope General: Chief Complaint: Syncope Stated Complaint: n/v, 7 weeks Time Seen by Provider: 03/06/23 10:08 Source: patient Mode of arrival: ambulatory History of Present Illness: 33-year-old female G3, P1 at approximately 7 weeks gestation presents to the emergency room with complaints of persistent nausea and vomiting is having 2 episodes per day she has been lightheaded and dizzy has had some orthostatic hypotensive episodes where she has had near syncope. I gave her some Reglan for the persistent nausea and vomiting that makes her really sleepy and seems to contribute to her orthostatic events. She denies any dysuria urgency or frequency fever sweats chills no vaginal discharge or bleeding and no significant cramping. Previous pregnancies that she has not had any complications or problems delivered vaginally at term. No gestational diabetes no preeclampsia or hypertension or labor. complaint: almost passed out Onset (ago): week(s) (1) Context: standing up Injuries sustained associated with event: none Associated symptoms: Reports nausea; Deny abdominal pain, chest pain, fever(s), headache(s), lightheadedness, short of breath, vertigo or weakness Treatments prior to arrival: medication (Reglan) Review of Systems Const: Denies: fever(s), chills, fatigue or malaise ENMT: Denies: throat pain, ear or mastoid pain, nasal discharge or nasal congestion Card: Denies: chest pain or lightheadedness Resp: Denies: dyspnea, productive cough or non-productive cough GI: Reports: nausea; Denies: abdominal pain : Denies: flank pain, difficulty voiding, dysuria, urinary frequency or urin ghanshyam urgency Skin/Breast: Denies: rash or pruritus Neuro: Denies: headache(s) or vertigo PFSH ED 2 PFSH: Medical History Migraine Spinal stenosis of lumbar region Surgical History Hx of appendectomy Hx of tonsillectomy Status post laparoscopic cholecystectomy (12/18/20) Social History Smoking and tobacco status: never smoked Quit status (tobacco): has quit using tobacco Year quit tobacco: 2014 Second hand smoke exposure: No Alcohol intake: never Lives independently: Yes Household members: children Housing: House Marital status: Single service: No Current occupational status: employed Current occupation: [employer] Current gender identity: Female Special sloan needs: No Physical Exam Const: GENERAL APPEARANCE: cooperative and comfortable ORIENTATION/CONSCIOUSNESS: Yes awake, Yes oriented to person, Yes oriented to place and Yes oriented to time HENMT: COMMON NORMALS: normocephalic, atraumatic and hearing grossly normal bilaterally HEAD & SCALP: normocephalic and atraumatic Resp: COMMON NORMALS: normal respiratory effort, No retractions, No use of accessory muscles and clear to auscultation bilaterally AUSCULTATION: clear to auscultation bilaterally Cardio: COMMON NORMALS: regular rate, regular rhythm and No murmurs present (Cardio) RATE: regular rate RHYTHM: regular rhythm GI: COMMON NORMALS: Soft to palpation and No hepatosplenomegaly present AUSCULTATION: Yes normoactive bowel sounds PALPATION: Yes Soft to palpation, No Tenderness to palpation present (GI), No Guarding due to palpation present (GI) and Yes No hepatosplenomegaly present Extremity: COMMON NORMALS: normal to inspection, capillary refill normal, no clubbing, cyanosis or edema, no calf tenderness and no pedal edema Neuro: SENSORIUM/ORIENTATION: Yes oriented to person, Yes oriented to place and Yes oriented to time Skin: COMMON NORMALS: no rashes or lesions noted GENERAL SKIN EXAM: no rashes or lesions noted Course Vital Signs: Vital signs: Vital Signs Temperature 98.4 F 03/06/23 10:05 Pulse Rate 65 03/06/23 13:17 Respiratory Rate 18 03/06/23 13:17 Blood Pressure 135/81 03/06/23 13:17 Pulse Oximetry 98 03/06/23 13:17 Oxygen Delivery Me thod 03/06/23 10:05 MDM - Syncope Medical Decision Making Improved after fluids. We will discharge patient home on clear liquid diet for the next 2 days started on Diclegis continue to use the Reglan as needed follow- up with your primary care doctor in the next 2-3 3 days return if has persisten ce or worsening of symptoms Medical Records I reviewed the patient's medical records. Lab Data I reviewed the patient's lab results. 03/06/23 10:47 03/06/23 10:47 Laboratory Results WBC 7.2 10^3/uL (4.0-10.0) 03/06/23 10:47 RBC 4.60 10^6/uL (4.1-5.3) 03/06/23 10:47 Hgb 12.4 g/dL (11.5-15.3) 03/06/23 10:47 Hct 38.5 % (37.0-47.0) 03/06/23 10:47 MCV 83.7 fl (81-99) 03/06/23 10:47 MCH 27.0 pg (28.0-34.0) L 03/06/23 10:47 MCHC 32.2 g/dL (30.0-36.0) 03/06/23 10:47 RDW 13.3 % (12.1-15.1) 03/06/23 10:47 Plt Count 255 10^3/cmm (130-400) 03/06/23 10:47 MPV 10.0 fL (7.4-10.4) 03/06/23 10:47 Neut % (Auto) 76.8 % 03/06/23 10:47 Lymph % (Auto) 13.9 % 03/06/23 10:47 [place] % (Auto) 7.6 % 03/06/23 10:47 Eos % (Auto) 1.0 % 03/06/23 10:47 Baso % (Auto) 0.4 % 03/06/23 10:47 Neut # (Auto) 5.53 10^3/uL (1.8-7.7) 03/06/23 10:47 Lymph # (Auto) 1.0 10^3/uL (0.8-4.8) 03/06/23 10:47 [place] # (Auto) 0.6 10^3/uL (0.2-0.9) 03/06/23 10:47 Eos # (Auto) 0.1 10^3/uL (0.0-0.8) 03/06/23 10:47 Baso # (Auto) 0.0 10^3/uL (0.0-0.1) 03/06/23 10:47 Nucleated RBC % (auto) 0 % 03/06/23 10:47 Nucleated RBCs # 0.0 /100WBC 03/06/23 10:47 Sodium 136 mmol/L (136-145) 03/06/23 10:47 Potassium 3.9 mmol/L (3.5-5.1) 03/06/23 10:47 Chloride 105 mmol/L (98-107) 03/06/23 10:47 Carbon Dioxide 21 mmol/L (22-29) L 03/06/23 10:47 Anion Gap 13.9 (5-19) 03/06/23 10:47 BUN 9 mg/dL (6-20) 03/06/23 10:47 Creatinine 0.6 mg/dL (0.5-0.9) 03/06/23 10:47 GFR Calculation 114.4 mL/min (90-130) 03/06/23 10:47 Glucose 99 mg/dL (65-115) 03/06/23 10:47 Calculated Osmolality 281 mOsm/kg (285-295) L 03/06/23 10:47 Calcium 8.7 mg/dL (8.5-10.5) 03/06/23 10:47 Urine Color Yellow (Yellow) 03/06/23 12:04 Urine Appearance Sl hazy (CLEAR) A 03/06/23 12:04 Urine pH 5 (5-7) 03/06/23 12:04 Ur Specific [place] 1.005 (1.005-1.030) 03/06/23 12:04 Urine Protein Neg (Negative) 03/06/23 12:04 Urine Glucose (UA) Norm (Normal) 03/06/23 12:04 Urine Ketones Negative (Negative) 03/06/23 12:04 Urine Blood Neg (Negative) 03/06/23 12:04 Urine Nitrate Negative (Negative) 03/06/23 12:04 Urine Bilirubin Neg (Negative) 03/06/23 12:04 Urine Urobilinogen Norm mg/dL (Negative) 03/06/23 12:04 Ur Leukocyte Esterase Negative (Negative) 03/06/23 12:04 Urine RBC None /hpf (0-2) 03/06/23 12:04 Urine WBC None /hpf (0-5) 03/06/23 12:04 Ur Squamous Epith Cells 5-10 /hpf (0-5) H 03/06/23 12:04 Amorphous Sediment Not Reportable 03/06/23 12:04 Urine Bacteria Trace /hpf (NONE) 03/06/23 12:04 Discharge Plan Discharge Patient Disposition: Home Clinical Impression: Hyperemesis gravidarum Condition: Stable Prescriptions: New Diclegis 10-10 mg tablet,delayed release (DR/EC) 1 tab PO BID Qty: 90 0RF Rx Instructions: Take 2 tablets at at bedtime, if no improvement add 1 tablet in the morning No Action metoclopramide HCl [Reglan] 5 mg tablet 5 mg PO DAILY Qty: 30 3RF Discharge Orders: Discharge ED (Routine); Ordered 03/06/23 Ordered By: Vijay Rojas Referrals: Mita Patel, CARTER [Primary Care Provider] - Discharge Diet: Clear Liquid Discharge Activity: Resume usual activity Patient Instructions: Opioid Safety, Pain Management Activity Restrictions/Additional Instructions: You were seen today for hyperemesis gravidarum (morning sickness). Continue to use the Reglan as needed. Start Diclegis. Initially 2 tablets at at bedtime if after 2 days if symptoms or not improving continue 2 tablets at at bedtime and add 1 tablet in the morning if after 2 more days you are still having symptoms increase to 2 tablets twice daily. Follow-up with your primary obstruction within a week. Recommend clear liquid diet for the next 2 to 3 days. Stand Alone Forms: Work/School Release Coding Level of Care Code ED [employer]iler E[employer]ctor for Montse Araya
[2023-03-06] MEDS: promethazine 25 mg/mL SDV 1 mL IM (10:54)
[2023-03-06] MEDS: sodium chloride 0.9% 1,000 ML 999 ML IV ×2 (10:55→12:19)
--- NOTE | 2023-03-06 10:56 | PC.NURSE ---
BG 93
[2023-03-06 11:00] LABS: Basophils % 0.4 %; Eosinophils # 0.1 10^3/uL (0.0-0.8); Hematocrit 38.5 % (37.0-47.0); Hemoglobin 12.4 g/dL (11.5-15.3); Lymphocytes % 13.9 %; Mean Corpuscular HGB Conc 32.2 g/dL (30.0-36.0); Mean Corpuscular Volume 83.7 fl (81-99); Monocytes # 0.6 10^3/uL (0.2-0.9); Monocytes % 7.6 %; Neutrophils # 5.53 10^3/uL (1.8-7.7); Neutrophils % 76.8 %; Nucleated Red Blood Cells % 0 %; Platelet Count 255 10^3/cmm (130-400); Red Cell Distribution Width 13.3 % (12.1-15.1); White Blood Count 7.2 10^3/uL (4.0-10.0)
[2023-03-06 11:12] VITALS: BP 132/85; PULSE 55; RESP 16; O2SAT 100
[2023-03-06 11:25] LABS: Anion Gap 13.9 (5-19); Blood Urea Nitrogen 9 mg/dL (6-20); Calcium 8.7 mg/dL (8.5-10.5); Carbon Dioxide 21 mmol/L (22-29); Chloride 105 mmol/L (98-107); Glomerular Filtration Rate 114.4 mL/min (90-130); Glucose 99 mg/dL (65-115); Osmolality Calculated 281 mOsm/kg (285-295); Potassium 3.9 mmol/L (3.5-5.1); Sodium 136 mmol/L (136-145)
[2023-03-06 12:22] VITALS: BP 135/85; PULSE 55; RESP 16; O2SAT 100
[2023-03-06 12:25] LABS: Add Urine Microscopic? YES; Bilirubin Urine Neg (Negative); Blood Urine Neg (Negative); Glucose Urine UA Norm (Normal); Ketones Urine Negative (Negative); Leukocyte Esterase Urine Negative (Negative); Nitrate Urine Negative (Negative); Protein Urine Neg (Negative); Specific Gravity, Urine 1.005 (1.005-1.030); Urine Appearance SL Hazy (CLEAR); Urine Color Yellow (Yellow); Urobilinogen Urine Norm (Negative); pH Urine 5 (5-7)
[2023-03-06 12:26] LABS: Bacteria Urine TRACE /hpf
[2023-03-06 12:27] LABS: Add Urine Culture? No
[2023-03-06 13:17] VITALS: BP 135/81; PULSE 65; RESP 18; O2SAT 98
[2023-03-06 18:34] LABS: Glucose Point of Care 93 mg/dL (70-110)
== END 2023-03-06 13:19 | disposition home or self-care (01) ==
PROVIDERS: Emergency Provider Family Medicine; PCP Nurse Practitioner Family
DX: O21.0 Mild hyperemesis gravidarum (principal); Z3A.01 Less than 8 weeks gestation of pregnancy; Z87.891 Personal history of nicotine dependence
CPT/HCPCS: 36416; 80048; 81001; 82962; 85025; 96360; 96361; 96372; 99284; J2550; J7030

== ENCOUNTER → 2023-03-25 16:07 | Outpatient (BNVA) | payer BC, MEDICAID, SELFPAY ==
--- NOTE | 2023-04-09 18:58 | P.HP_ITS ---
Providers/Chief Complaint Admitting Physician: Jace Colvin M.D. Primary HEALTHCARE ACCOUNT MANAGER: Maryann Neff M.D. Primary Care Provider: CARTER Monroy Chief Complaint: EARLY DATING US MACHELLE Handley [facility] HEALTHCARE ACCOUNT MANAGER History of Present Illness Tana Brownlee is a 33 year old female with missed Ab at 12 weeks. Patient had ultrasound done 03-25-23 that showed IUP at 12 weeks with no heart motion. Patient was given cytotec 600 ug intravaginal one week ago. Presented to ER this evening with sudden onset of severe vagina bleeding with large clots, soaking through 2 pads Medications/Allergies Home Medications Medication Instructions Recorded Confirmed Last Taken Type doxylamine 10 mg-pyridoxine (vit 1 tab PO BID #90 tabs 03/06/23 03/25/23 Unknown Rx B6) 10 mg tablet,delayed release (Diclegis) metoclopramide HCl 5 mg tablet 5 mg PO DAILY 03/25/23 03/25/23 Unknown History (Reglan) ibuprofen 600 mg tablet 600 mg PO Q6H PRN pain #30 tabs 04/05/23 Unknown Rx misoprostol 200 mcg tablet 600 mcg PO Q6H #12 tabs 04/05/23 Unknown Rx (Cytotec) promethazine 25 mg tablet 25 mg PO Q6H PRN nausea and 04/05/23 Unknown Rx vomiting #30 tabs Allergies Allergy/AdvReac Type Severity Reaction Status Date / Time Sulfa (Sulfonamide Allergy Severe ALGY-Difficulty Verified 03/25/23 14:39 Antibiotics) Breathing tramadol Allergy Intermediate ALGY-Hives Verified 03/25/23 14:39 chlorpheniramine Allergy Mild ADR-Nausea Verified 03/25/23 14:39 [From Cardec (phenylephrin-chlorphn)] phenylephrine Allergy Mild ADR-Nausea Verified 03/25/23 14:39 [From Cardec (phenylephrin-chlorphn)] PFSH HEALTHCARE ACCOUNT MANAGER PFSH: Medical History Migraine Spinal stenosis of lumbar region Surgical History Hx of appendectomy Hx of tonsillectomy Status post laparoscopic cholecystectomy (12/18/20) History History History 4 Term 1 1 Miscarriages/Ectopic 1 Living Children 2 Care DAR Calculator Estimated Delivery Date Method Current WG Current Estimate 10/20/23 Ultrasound #1 12w 2d Other Estimates 09/18/23 LMP (Certain) 16w 6d Physical Exam Narrative: awake, alert HENMT: COMMON NORMALS: normocephalic, atraumatic, hearing grossly normal bilaterally, external ears normal, EAC's normal, TM's normal bilaterally, Normal external nose present, Normal nasal mucous membranes and turbinates present, moist oral mucous membranes, oropharynx normal, dentition normal and gingiva normal Chest: COMMONS NORMALS: normal inspection of the chest : OTHER: large amount of blood at perineum Results OB Ultrasound OB sono done 03-25- - weeks IUP, no heart motion A&P Assessment and plan (1) Incomplete : patient with incomplete and large amount of hemorrhage plan suction D&C procedure and risks explained to patient, including risks of infection, bleeding, injury to internal organs, anesthesia, blood transfusions patient understands and wants to proceed Attestations Medical Necessity Statement*: patient at 12 weeks with missed Ab, now also with signifiant hemorrhage Coding Level of Care Code Acute Code for Chg Fwd Diagnoses Incomplete O03.4 Time Spent (min) 60
== END ==
PROVIDERS: PCP Nurse Practitioner Family; Visit Provider Obstetrics & Gynecology
DX: Z36.87 Encounter for antenatal screening for uncertain dates (principal)
CPT/HCPCS: 76817; 81000; 87086

== ENCOUNTER 2023-04-09 17:40 | Observation (INO) | payer BC, MEDICAID, SELFPAY ==
[2023-04-09] VITALS (15 sets, daily range): BP systolic 119–155; BP diastolic 65–89; PULSE 54–93; RESP 12–19; TEMP 36.1–36.9; O2SAT 93–100
[2023-04-09] MEDS: promethazine 25 mg/mL SDV 1 mL IM (18:00)
[2023-04-09 18:05] LABS: Basophils # 0.1 10^3/uL (0.0-0.1); Basophils % 0.5 %; Eosinophils # 0.1 10^3/uL (0.0-0.8); Eosinophils % 0.8 %; Hematocrit 34.3 % (37.0-47.0); Hemoglobin 10.9 g/dL (11.5-15.3); Lymphocytes # 2.1 10^3/uL (0.8-4.8); Lymphocytes % 16.6 %; Mean Corpuscular HGB Conc 31.8 g/dL (30.0-36.0); Mean Corpuscular Volume 84.9 fl (81-99); Mean Platelet Volume 10.5 fL (7.4-10.4); Monocytes # 0.9 10^3/uL (0.2-0.9); Monocytes % 6.9 %; Neutrophils # 9.29 10^3/uL (1.8-7.7); Nucleated Red Blood Cells % 0 %; Platelet Count 301 10^3/cmm (130-400); Red Blood Count 4.04 10^6/uL (4.1-5.3); Red Cell Distribution Width 13.4 % (12.1-15.1); White Blood Count 12.4 10^3/uL (4.0-10.0)
[2023-04-09] MEDS: sodium chloride 0.9% 1,000 ML 999 ML IV (18:11)
--- NOTE | 2023-04-09 18:11 | ED_ITS ---
HPI - General: Chief complaint: Vaginal Bleeding Stated complaint: 12 weeks preg, heavy bleeding Time Seen by Provider: 04/09/23 17:49 Source: patient Mode of arrival: ambulatory History of Present Illness: 33-year-old female G4, P3 SAB 1 took Cytotec for missed AB started bleeding heavily within the last hour has gone through multiple large pads as completely soaked her clothing and pads placed in a wheelchair in triage in route to a exam room. I came to the room if she had active visible bleeding. She is lighth eaded and dizzy but she is not tachycardic. She is having some intermittent cramping. She had recently taken Cytotec and attempts to resolve the incomplete AB Complaint: vaginal bleeding Onset (ago): hour(s) Pain Consistency: intermittent Location: pelvis Severity: severe Quality: Cramping Relieving factors: none Exacerbating factors: none Vaginal bleeding: heavy OB History - Current : other (Incomplete AB) Associated symptoms: Reports abdominal pain, vaginal bleeding and weakness; Deny dyspareunia, dysuria, headache(s), malaise, nausea, rash, seizures, short o f breath, syncope, vaginal discharge, visual changes or vomiting Review of Systems Const: Denies: fever(s), chills or malaise ENMT: Denies: throat pain, ear or mastoid pain, nasal discharge or nasal congestion Card: Denies: syncope Resp: Denies: dyspnea, productive cough or non-productive cough GI: Reports: abdominal pain; Denies: nausea or vomiting : Reports: vaginal bleeding; Denies: dysuria, urinary frequency, urinary urgency, vaginal discharge or dyspareunia Skin/Breast: Denies: rash or pruritus Neuro: Denies: headache(s) PFSH ED PFSH: Medical History Migraine Spinal stenosis of lumbar region Surgical History Hx of appendectomy Hx of tonsillectomy Status post laparoscopic cholecystectomy (12/18/20) Physical Exam Const: ORIENTATION/CONSCIOUSNESS: Yes awake, Yes oriented to person, Yes oriented to place and Yes oriented to time HENMT: COMMON NORMALS: normocephalic, atraumatic and hearing grossly normal bilaterally HEAD & SCALP: normocephalic and atraumatic Resp: COMMON NORMALS: normal respiratory effort, No retractions, No use of accessory muscles and clear to auscultation bilaterally AUSCULTATION: clear to auscultation bilaterally Cardio: COMMON NORMALS: regular rate, regular rhythm and No murmurs present (Cardio) RATE: regular rate RHYTHM: regular rhythm : SPECULUM EXAM - VAGINA: Yes vaginal bleeding OB/EXTERNAL & SPECULUM: vaginal bleeding Extremity: COMMON NORMALS: normal to inspection, capillary refill normal, no clubbing, cyanosis or edema, no calf tenderness and no pedal edema Neuro: SENSORIUM/ORIENTATION: Yes oriented to person, Yes oriented to place and Yes oriented to time Skin: COMMON NORMALS: no rashes or lesions noted GENERAL SKIN EXAM: no rashes or lesions noted Course Vital Signs: Vital signs: Vital Signs Temperature 98.3 F 04/10/23 03:42 Pulse Rate 59 L 04/10/23 03:42 Respiratory Rate 15 04/10/23 03:42 Blood Pressure 143/76 04/10/23 03:42 Pulse Oximetry 98 04/10/23 03:42 Oxygen Delivery Me thod Room Air 04/10/23 03:42 MDM - OB/Uterine Contractions Medical Decision Making Active heavy bleeding vaginally on arrival her close in the Chux pad in the wheelchair is soaked with blood. Clothing is removed IV started she was typed and screened she is given TXA and estrogen IV push. Pelvic exam in the room removed POC tissue from the cervical os which was widely dilated. Did seem to slow the bleeding but did not cease at the vaginal canal was packed with gauze. By this time Dr. Colvin had arrived. Dr. Colvin will take patient to the OR for D&C. Labs reviewed. Medical Records I reviewed the patient's medical records. Lab Data I reviewed the patient's lab results. 04/10/23 05:32 04/09/23 17:50 Laboratory Results WBC 12.4 10^3/uL (4.0-10.0) H 04/09/23 17:50 RBC 4.04 10^6/uL (4.1-5.3) L 04/09/23 17:50 Hgb 10.9 g/dL (11.5-15.3) L 04/09/23 17:50 Hct 34.3 % (37.0-47.0) L 04/09/23 17:50 MCV 84.9 fl (81-99) 04/09/23 17:50 MCH 27.0 pg (28.0-34.0) L 04/09/23 17:50 MCHC 31.8 g/dL (30.0-36.0) 04/09/23 17:50 RDW 13.4 % (12.1-15.1) 04/09/23 17:50 Plt Count 301 10^3/cmm (130-400) 04/09/23 17:50 MPV 10.5 fL (7.4-10.4) H 04/09/23 17:50 Neut % (Auto) 75.0 % 04/09/23 17:50 Lymph % (Auto) 16.6 % 04/09/23 17:50 [place] % (Auto) 6.9 % 04/09/23 17:50 Eos % (Auto) 0.8 % 04/09/23 17:50 Baso % (Auto) 0.5 % 04/09/23 17:50 Neut # (Auto) 9.29 10^3/uL (1.8-7.7) H 04/09/23 17:50 Lymph # (Auto) 2.1 10^3/uL (0.8-4.8) 04/09/23 17:50 [place] # (Auto) 0.9 10^3/uL (0.2-0.9) 04/09/23 17:50 Eos # (Auto) 0.1 10^3/uL (0.0-0.8) 04/09/23 17:50 Baso # (Auto) 0.1 10^3/uL (0.0-0.1) 04/09/23 17:50 Nucleated RBC % (auto) 0 % 04/09/23 17:50 Nucleated RBCs # 0.0 /100WBC 04/09/23 17:50 PT 14.00 SECONDS (12.1-14.9) 04/09/23 17:50 INR 1.05 (0.8-1.2) 04/09/23 17:50 APTT 22.5 SECONDS (23.9-36.7) L 04/09/23 17:50 Sodium 139 mmol/L (136-145) 04/09/23 17:50 Potassium 3.5 mmol/L (3.5-5.1) 04/09/23 17:50 Chloride 106 mmol/L (98-107) 04/09/23 17:50 Carbon Dioxide 19 mmol/L (22-29) L 04/09/23 17:50 Anion Gap 17.5 (5-19) 04/09/23 17:50 BUN 15 mg/dL (6-20) 04/09/23 17:50 Creatinine 0.7 mg/dL (0.5-0.9) 04/09/23 17:50 GFR Calculation 95.8 mL/min (90-130) 04/09/23 17:50 Glucose 111 mg/dL (65-115) 04/09/23 17:50 Calculated Osmolality 290 mOsm/kg (285-295) 04/09/23 17:50 Calcium 8.5 mg/dL (8.5-10.5) 04/09/23 17:50 Total Bilirubin 0.2 mg/dL (0.15-1.2) 04/09/23 17:50 AST 13 U/L (0-32) 04/09/23 17:50 ALT 12 U/L (0-33) 04/09/23 17:50 Alkaline Phosphatase 78 U/L (35-105) 04/09/23 17:50 Total Protein 6.7 g/dL (6.6-8.7) 04/09/23 17:50 Albumin 4.0 g/dL (3.5-5.2) 04/09/23 17:50 Globulin 2.7 g/dL (1.3-4.6) 04/09/23 17:50 Ser , Semi-Qnt 803.80 mIU/mL 04/09/23 17:50 Discharge Plan Discharge Patient Disposition: Admitted As Inpatient Admit Provider: Jace Colvin Clinical Impression: Incomplete Condition: Stable Coding Level of Care Code ED Tube Room Cashier for Essieg Marshal
[2023-04-09 18:14] LABS: INR 1.05 (0.8-1.2); Partial Thromboplastin Time 22.5 SECONDS (23.9-36.7)
--- NOTE | 2023-04-09 18:28 | ANES.PREANE2 ---
Pre-Anesthetic Assessment Height/Weight: Height 1.73 m Pulse Resp BP Pulse Ox 71 19 H 121/74 95 04/09/23 18:16 04/09/23 18:16 04/09/23 18:16 04/09/23 18:16 Operation Date: 04/09/23 20:30 Proposed Procedures p Dilation And Curettage w/ Suction(Not Applicable) - Jace Colvin MD Familial anesthetic complications: none Was Beta Kenia taken within 24 hours: N/A Was Clonidine taken within 24 hours: N/A Social No alcohol and No tobacco Exam alert, oriented x 3, clear to auscultation bilaterally and regular rate & rhythm Airway Submandibular: within normal limits Cervical ROM: within normal limits Mallampati: Class II Dentition: full CV/HEM Slight anemia, V/S stable Metabolic Morbid Obesity Musc/skel Lower Back Pain Neuropsych Headache Anesthetic Plan ASA status: 3E Anesthesia: General (RSI) Medications/Allergies Home Medications Medication Instructions Recorded Confirmed Last Taken Type doxylamine 10 mg-pyridoxine (vit 1 tab PO BID #90 tabs 03/06/23 03/25/23 Unknown Rx B6) 10 mg tablet,delayed release (Diclegis) metoclopramide HCl 5 mg tablet 5 mg PO DAILY 03/25/23 03/25/23 Unknown History (Reglan) ibuprofen 600 mg tablet 600 mg PO Q6H PRN pain #30 tabs 04/05/23 Unknown Rx misoprostol 200 mcg tablet 600 mcg PO Q6H #12 tabs 04/05/23 Unknown Rx (Cytotec) promethazine 25 mg tablet 25 mg PO Q6H PRN nausea and 04/05/23 Unknown Rx vomiting #30 tabs Allergies Allergy/AdvReac Type Severity Reaction Status Date / Time Sulfa (Sulfonamide Allergy Severe ALGY-Difficulty Verified 03/25/23 14:39 Antibiotics) Breathing tramadol Allergy Intermediate ALGY-Hives Verified 03/25/23 14:39 chlorpheniramine Allergy Mild ADR-Nausea Verified 03/25/23 14:39 [From Cardec (phenylephrin-chlorphn)] phenylephrine Allergy Mild ADR-Nausea Verified 03/25/23 14:39 [From Cardec (phenylephrin-chlorphn)] Current Medications Generic Name Dose Route Start Last Admin Trade Name Freq PRN Reason Stop Dose Admin Estrogens Conjugated 25 mg 04/09/23 18:30 04/09/23 18:13 Estrogens Conjugated 25 Mg/5 Ml Sdv IVP 04/09/23 18:31 25 mg ONCE ONE Administration Sodium Chloride 1,000 mls @ 999 mls/hr 04/09/23 18:00 04/09/23 18:11 Sodium Chloride 0.9% IV 04/09/23 20:00 999 mls/hr .Q1H1M ANITA Administration PFSH Anesthesia Medical History Migraine Spinal stenosis of lumbar region Surgical History Hx of appendectomy Hx of tonsillectomy Status post laparoscopic cholecystectomy (12/18/20) Data Anesthesia 04/09/23 17:50 04/09/23 17:50 Short CBC 04/09/23 Range/Units 17:50 WBC 12.4 H (4.0-10.0) 10^3/uL Hgb 10.9 L (11.5-15.3) g/dL Hct 34.3 L (37.0-47.0) % MCV 84.9 (81-99) fl Plt Count 301 (130-400) 10^3/cmm Neut % (Auto) 75.0 % Neut # (Auto) 9.29 H (1.8-7.7) 10^3/uL Coags 04/09/23 17:50 PT 14.00 INR 1.05 APTT 22.5 L Cardiac Studies: No Data to Display
[2023-04-09 18:32] LABS: Alanine Aminotransferase 12 U/L (0-33); Alkaline Phosphatase 78 U/L (35-105); Anion Gap 17.5 (5-19); Aspartate Amino Transferase 13 U/L (0-32); Blood Urea Nitrogen 15 mg/dL (6-20); Calcium 8.5 mg/dL (8.5-10.5); Carbon Dioxide 19 mmol/L (22-29); Chloride 106 mmol/L (98-107); Globulin 2.7 g/dL (1.3-4.6); Glomerular Filtration Rate 95.8 mL/min (90-130); Glucose 111 mg/dL (65-115); Osmolality Calculated 290 mOsm/kg (285-295); Potassium 3.5 mmol/L (3.5-5.1); Sodium 139 mmol/L (136-145); Total Bilirubin 0.2 mg/dL (0.15-1.2); Total Protein 6.7 g/dL (6.6-8.7)
--- NOTE | 2023-04-09 18:40 | PC.NURSE ---
Dr. Krueger entered the room and asked for help, upon arrival, I noticed that pt had excessive bleeding on the chucks that were on the wheelchair and on the floor. Got pt on the bed, got 2 IVs started, fluids running in a pressure bag, VS were normal. Dr. Krueger at bedside.
--- NOTE | 2023-04-09 18:42 | PC.NURSE ---
Surgery team came to take pt, gave them Hemabate medication. Pt care turned over to surgery staff.
--- NOTE | 2023-04-09 20:03 | ANE.PACU2 ---
Inpatient post-anesthesia follow up: Airway intact: Yes Vital signs: Temperature 97 F Pulse Rate 93 Respiratory Rate 12 Blood Pressure 130/65 Pulse Oximetry 93 Oxygen Delivery Me thod Room Air Oxygen Flow Rate Fraction of Inspir ed Oxygen Hydration adequate: Yes Nausea and vomiting: No Pain level: 2 Mental status: Baseline
--- NOTE | 2023-04-09 21:44 | P.OP_ITS ---
Operative Report Date of procedure: April 09, 2023 Pre-op diagnosis: Incomplete spontaneous at 12 weeks Post-op diagnosis: same Post-op findings: cervix widely open uterus sounded to 12 cm large clots and POC in uterus and at cervical os Procedure done: suction curettage of uterus Specimens removed/disposition: products of conception Surgeon: Jace Colvin MD Estimated blood loss (mL): 300 Complications: none Brief History: 33 y.o. with incomplete spontaneous at 12 weeks. Presented to ER with large amount of vaginal bleeding and clots. Procedure: Informed consent signed The patient was taken to the OR and placed supine on the table. General anesth esia was induced. The patient was placed in dorsolithotomy position. The perineum was prepped and draped in the usual fashion. A bivalve speculum was placed in the vagina. The anterior lip of the cervix was grasped with a sharp- toothed tenaculum. The cervix was noted to be widely open. POC and blood clots were evident at the cervical os. The uterus was sounded to 12 cm. A #12 curved suction curette was used to empty the contents of the uterus. A sharp curette followed by the suction curette were used to evacuate the uterus. Blood clots and POC were obtained and sent to pathology. Following this, the uterus was felt to be empty and intact. No bleeding was seen. All instruments were removed from the cervix and vagina. The patient was then placed supine and awakened. The patient was taken to the RR in good condition. Postop condition: stable EBL: 300 cc Complications: none Sponge and instruments counts correct x two
[2023-04-09] MEDS: ibuprofen 800 mg tablet PO (22:11)
[2023-04-10 01:38] VITALS: BP 142/77; PULSE 58; RESP 14; TEMP 37; O2SAT 96
--- NOTE | 2023-04-10 02:48 | PM.OP2 ---
Brief Operative Note Date of procedure: 04/10/23 Procedure Done: suction curettage of uteru Surgeon: Jace Colvin Complications: none Post-op Plan: April 09, 2023, 2139 Immediate postop note Patient awake, alert Clinically and hemodynamically stable No bleeding Plan admit patient overnight to recheck Hgb in the morning Condition: stable Coding Level of Care Code Acute Code for Chg Fwd Time Spent (min) 20
[2023-04-10 03:42] VITALS: BP 143/76; PULSE 59; RESP 15; TEMP 36.8; O2SAT 98
[2023-04-10 05:49] LABS: Hemoglobin 9.9 g/dL (11.5-15.3); Mean Corpuscular HGB Conc 31.9 g/dL (30.0-36.0); Mean Corpuscular Hemoglobin 27.3 pg (28.0-34.0); Mean Corpuscular Volume 85.6 fl (81-99); Mean Platelet Volume 10.7 fL (7.4-10.4); Platelet Count 256 10^3/cmm (130-400); Red Blood Count 3.62 10^6/uL (4.1-5.3); Red Cell Distribution Width 13.4 % (12.1-15.1); White Blood Count 11.1 10^3/uL (4.0-10.0)
[2023-04-10] MEDS: ibuprofen 800 mg tablet PO (07:42)
[2023-04-10 10:16] VITALS: BP 129/77; PULSE 75; RESP 16; TEMP 36.9
[2023-04-10 13:41] VITALS: BP 133/78; PULSE 64; RESP 16; TEMP 36.9
--- NOTE | 2023-04-10 13:49 | P.PN_ITS ---
TAKER OFF BRAKER MACHINE Subjective Subjective: Interval history: s/p suction D&C April 09, 2023 for incomplete SAB at 12 weeks with excessive vaginal bleeding No c/o No weakness, dizziness Eating, voiding, ambulating well Minimal bleeding Vitals/I&O/Wt Last Vital Signs Temp 98.4 F 04/10/23 13:41 Pulse 64 04/10/23 13:41 Resp 16 04/10/23 13:41 BP 133/78 04/10/23 13:41 Pulse Ox 98 04/10/23 03:42 O2 Del Method Room Air 04/10/23 03:42 04/09/23 04/10/23 04/10/23 22:59 06:59 14:59 Intake Total 1000 / 1000 Output Total 425 / 425 800 / 800 Balance 575 / 575 -800 / -800 Physical Exam Narrative: Awake, alert VS normal Abd: soft, nontender Hgb this a.m. 9.9 Urinary Catheter Management: Monreal Latex: Cath Placed During This Visit: yes, but has since been removed by the nurse Urinary Catheter Date of Insertion: 04/09/23 Urinary Catheter Time of Insertion: 19:20 Date Urinary Catheter Removed: 04/09/23 Time Urinary Catheter Discontinued: 19:32 Data 04/10/23 05:32 04/09/23 17:50 A&P Assessment and plan (1) Incomplete : POD #1 suction D&C for incomplete SAB with excessive vaginal bleeding Doing well Plan discharge home Call/return if feeling dizzy or weak; bleeding; pain; fever, chills, nausea, vomiting F/u within one week Attestations Medical Necessity Statement*: patient s/p suction D&C for incomplete SAB at 12 weeks with excessive vaginal bleeding Coding Level of Care Code Acute Code for Chg Fwd Diagnoses Incomplete O03.4 Time Spent (min) 20
--- NOTE | 2023-04-10 13:53 | PM.OBGYDC ---
Discharge Providers MEDICAL CASH POSTER Date of Admission: 04/09/23 20:21 Date of Discharge: 04/10/23 Attending Provider at Admission: Jace Colvin MD Attending Provider at Discharge: Jace Colvin MD Primary MEDICAL CASH POSTER: Maryann Neff MD Primary Care Provider: CARTER Monroy Diagnoses at Discharge Discharge Diagnosis (1) Incomplete : Details from hospital stay: patient s/p suction D&C for incomplete SAB at 12 weeks with excessive vaginal bleeding Status: Acute Reason for Visit Reason for Visit: 12 weeks preg, heavy bleeding Hospital Course Hospital Course patient did well s/p suction D&C no c/o weakness, dizziness ambulating, eating, voiding well Hgb on morning of April 10, 2023 stable at 9.9 Physical Exam Urinary Catheter Management: Monreal Latex: Cath Placed During This Visit: yes, but has since been removed by the nurse Urinary Catheter Date of Insertion: 04/09/23 Urinary Catheter Time of Insertion: 19:20 Date Urinary Catheter Removed: 04/09/23 Time Urinary Catheter Discontinued: 19:32 History History History 4 Term 1 1 Miscarriages/Ectopic 1 Living Children 2 Discharge Data Studies Completed and Pending Pending at discharge Category Date Time Status Pathology: Surgical [PTH] Routine Pth 04/09/23 19:48 Ordered Laboratory Results WBC 11.1 10^3/uL (4.0-10.0) H 04/10/23 05:32 RBC 3.62 10^6/uL (4.1-5.3) L 04/10/23 05:32 Hgb 9.9 g/dL (11.5-15.3) L 04/10/23 05:32 Hct 31.0 % (37.0-47.0) L 04/10/23 05:32 MCV 85.6 fl (81-99) 04/10/23 05:32 MCH 27.3 pg (28.0-34.0) L 04/10/23 05:32 MCHC 31.9 g/dL (30.0-36.0) 04/10/23 05:32 RDW 13.4 % (12.1-15.1) 04/10/23 05:32 Plt Count 256 10^3/cmm (130-400) 04/10/23 05:32 MPV 10.7 fL (7.4-10.4) H 04/10/23 05:32 Neut % (Auto) 75.0 % 04/09/23 17:50 Lymph % (Auto) 16.6 % 04/09/23 17:50 [place] % (Auto) 6.9 % 04/09/23 17:50 Eos % (Auto) 0.8 % 04/09/23 17:50 Baso % (Auto) 0.5 % 04/09/23 17:50 Neut # (Auto) 9.29 10^3/uL (1.8-7.7) H 04/09/23 17:50 Lymph # (Auto) 2.1 10^3/uL (0.8-4.8) 04/09/23 17:50 [place] # (Auto) 0.9 10^3/uL (0.2-0.9) 04/09/23 17:50 Eos # (Auto) 0.1 10^3/uL (0.0-0.8) 04/09/23 17:50 Baso # (Auto) 0.1 10^3/uL (0.0-0.1) 04/09/23 17:50 Nucleated RBC % (auto) 0 % 04/09/23 17:50 Nucleated RBCs # 0.0 /100WBC 04/09/23 17:50 PT 14.00 SECONDS (12.1-14.9) 04/09/23 17:50 INR 1.05 (0.8-1.2) 04/09/23 17:50 APTT 22.5 SECONDS (23.9-36.7) L 04/09/23 17:50 Sodium 139 mmol/L (136-145) 04/09/23 17:50 Potassium 3.5 mmol/L (3.5-5.1) 04/09/23 17:50 Chloride 106 mmol/L (98-107) 04/09/23 17:50 Carbon Dioxide 19 mmol/L (22-29) L 04/09/23 17:50 Anion Gap 17.5 (5-19) 04/09/23 17:50 BUN 15 mg/dL (6-20) 04/09/23 17:50 Creatinine 0.7 mg/dL (0.5-0.9) 04/09/23 17:50 GFR Calculation 95.8 mL/min (90-130) 04/09/23 17:50 Glucose 111 mg/dL (65-115) 04/09/23 17:50 Calculated Osmolality 290 mOsm/kg (285-295) 04/09/23 17:50 Calcium 8.5 mg/dL (8.5-10.5) 04/09/23 17:50 Total Bilirubin 0.2 mg/dL (0.15-1.2) 04/09/23 17:50 AST 13 U/L (0-32) 04/09/23 17:50 ALT 12 U/L (0-33) 04/09/23 17:50 Alkaline Phosphatase 78 U/L (35-105) 04/09/23 17:50 Total Protein 6.7 g/dL (6.6-8.7) 04/09/23 17:50 Albumin 4.0 g/dL (3.5-5.2) 04/09/23 17:50 Globulin 2.7 g/dL (1.3-4.6) 04/09/23 17:50 Ser , Semi-Qnt 803.80 mIU/mL 04/09/23 17:50 Procedures Performed suction D&C of uterus Vitals Last Vital Signs Temp 98.4 F 04/10/23 13:41 Pulse 64 04/10/23 13:41 Resp 16 04/10/23 13:41 BP 133/78 04/10/23 13:41 Pulse Ox 98 04/10/23 03:42 O2 Del Method Room Air 04/10/23 03:42 Discharge Plan Discharge Patient Disposition: Home Condition: Stable Prescriptions: Continued metoclopramide HCl [Reglan] 5 mg tablet 5 mg PO DAILY ibuprofen 600 mg tablet 600 mg PO Q6H PRN (Reason: pain) Qty: 30 0RF promethazine 25 mg tablet 25 mg PO Q6H PRN (Reason: nausea and vomiting) Qty: 30 0RF misoprostol [Cytotec] 200 mcg tablet 600 mcg PO Q6H Qty: 12 0RF Diclegis 10-10 mg tablet,delayed release (DR/EC) 1 tab PO BID Qty: 90 0RF Rx Instructions: Take 2 tablets at at bedtime, if no improvement add 1 tablet in the morning Discharge Orders: Discharge Order (Routine); Ordered 04/10/23 Ordered By: Jace Colvin Referrals: Mita Patel FNP [Primary Care Provider] - Discharge Diet: Usual diet Discharge Activity: Increase activity as tolerated Patient Instructions: Miscarriage (DC), Depression (DC), Bleeding (DC), Dilation and Curettage (DC), Opioid Safety Stand Alone Forms: Work/School Release Discharge Attestations MEDICAL CASH POSTER Time Spent in Discharge Care*: less than 30 min Specific Discharge Activities: Specific discharge activities: educating patient and documenting/other paperwork Status at Discharge: Overall status at discharge: patient is progressing back to baseline Coding Level of Care Code Acute Code for Chg Fwd Diagnoses Incomplete O03.4 Time Spent (min) 20
== END 2023-04-10 13:42 | disposition home or self-care (01) ==
LOC: ER 18:13 → OR 18:17 → OBGYN 20:22
PROVIDERS: Admitting Provider Obstetrics & Gynecology; Emergency Provider Family Medicine; PCP Nurse Practitioner Family; Visit Provider Obstetrics & Gynecology
PROC: (CPT 59812; principal; 2023-04-09 20:30)
DX: O03.1 Delayed or excessive hemorrhage following incomplete spontaneous abortion (principal)
CPT/HCPCS: 59812; 36415; 80053; 84702; 85025; 85027; 85610; 85730; 88305; 96372; 96374; 99285; G0378; J0330; J1100; J1410; J2370; J2405; J2550; J2704; J3010; J3490; J7030; P9045

== ENCOUNTER 2023-04-15 15:23 | Emergency (ER) | payer BC, MEDICAID, SELFPAY ==
[2023-04-15 15:29] VITALS: BP 174/80; PULSE 106; RESP 16; TEMP 36.8; O2SAT 100; BMI 43.9
--- NOTE | 2023-04-15 16:08 | USR_ITS ---
PROCEDURE INFORMATION: Exam: US Nonobstetric Pelvis; Complete Exam date and time: 04/15/2023 4:37 PM Age: 33 years old Clinical indication: Other: Bleeding post d&c; Prior surgery; Surgery date: 3-7 days post-operative; Additional info: Heavy vaginal bleeding 6 days post d c TECHNIQUE: Imaging protocol: Transabdominal pelvic nonobstetric ultrasound. Complete exam. Real time ultrasound with image documentation. COMPARISON: CT abdomen pelvis w con* [id number] 12/04/2020 10:43 PM FINDINGS: Uterus is anteverted and mildly enlarged measuring 9.0 x 5.5 x 6.7 cm. There is a heterogeneous echogenic mass within the lower uterine segment not well delineated from the adjacent myometrium that is noticeably hypervascular and difficult to measure. Findings should be correlated with patient's history to exclude retained products of conception of as well as uterine AVM. There are small indistinct of both in cysts within the cervix which is otherwise unremarkable. Left ovary is unremarkable measuring 3.1 x 2.1 x 2.5 cm. Normal blood flow. No adnexal mass. Right ovary cannot be identified due to obscuring bowel gas. No adnexal mass detected. No significant free fluid in the cul-de-sac. US/US pelv w/transvag [id number] IMPRESSION: Indistinct heterogeneous echogenic mass within the lower uterine segment that is markedly hypervascular on color flow imaging raising concern for either retained products of conception (if this patient was recently ) or uterine AVM. CTA of the pelvis may be helpful for further assessment.
--- NOTE | 2023-04-15 16:08 | ED_ITS ---
Documented by User: RILEY Nicholas 04/16/23 17:24 HPI - Female Genitourinary General: Chief complaint: Vaginal Bleeding Stated complaint: vaginal bleeding Time Seen by Provider: 04/15/23 15:55 History of Present Illness: Patient is a 33-year-old female comes to the ED with vaginal bleeding. Patient was seen here in the ED for similar complaint back on April 09 and at that time she was 12 weeks and was having heavy bleeding. She was diagnosed with an incomplete miscarriage and Dr. Colvin performed an emergency D&C on patient. Since procedure she has still been having some heavy bleeding and passing large clots. Vaginal bleeding improves when she is at rest, sitting or lying down. Vaginal bleeding worsens when she is up and active. She states that today she was at work and went through about 4 pads in an hour and a half. Patient says she has been passing some large clots that she described as lemon sized. She endorses some generalized abdominal cramping that she rates an 8 out of 10. Endorses nausea but denies any emesis. Denies any fevers. Patient also states that she feels little fatigued light headed for today. Associated symptoms: Reports nausea; Deny abdominal pain or headache(s) Review of Systems Const: Reports: fatigue and other (Lightheaded); Denies: fever(s) or chills Eyes: Denies: change in vision or eye discomfort ENMT: Denies: throat pain, odynophagia, nasal discharge or nasal congestion Card: Denies: chest pain, palpitations, edema, swelling of feet/ankles, dyspnea on exertion or orthopnea Resp: Denies: dyspnea, productive cough or non-productive cough GI: Reports: nausea; Denies: abdominal pain, vomiting, diarrhea, constipation or hematochezia : Reports: vaginal bleeding and pelvic pain (Generalized cramping pain lower abdomen); Denies: flank pain, dysuria or hematuria Musc: Denies: neck pain, back pain or extremity swelling Skin/Breast: Denies: rash or new lesions Neuro: Denies: headache(s), numbness in extremities or weakness in extremities [facility] ED PFSH: Medical History Migraine Spinal stenosis of lumbar region Surgical History Hx of appendectomy Hx of tonsillectomy Status post laparoscopic cholecystectomy (12/18/20) Physical Exam Const: COMMON NORMALS: no acute distress, patient oriented x3 and alert GENERAL APPEARANCE: cooperative and comfortable HENMT: COMMON NORMALS: normocephalic HEAD & SCALP: normocephalic MOUTH: Normal oral and palatal mucosa present THROAT: posterior oropharynx normal and uvula midline Neck/C-Spine: COMMON NORMALS: supple GENERAL: Yes normal visual inspection Resp: COMMON NORMALS: normal respiratory effort, No retractions, No use of accessory muscles and clear to auscultation bilaterally AUSCULTATION: clear to auscultation bilaterally Cardio: COMMON NORMALS: regular rate, regular rhythm, S1 normal heart sound present, S2 normal heart sound present, No gallops present (Cardio), No clicks present (Cardio), No murmurs present (Cardio) and Peripheral pulses 2+ throughout RATE: regular rate RHYTHM: regular rhythm HEART SOUNDS: S1 normal heart sound present and S2 normal heart sound present PERIPHERAL PULSES: Peripheral pulses 2+ throughout GI: COMMON NORMALS: Normal to inspection, nondistended, normoactive bowel sounds present, Soft to palpation, non-tender and no masses PALPATION: Yes Soft to palpation : COMMON NORMALS: Yes no CVA tenderness BLADDER/KIDNEY EXAM: Yes no CVA tenderness Back/Pelvis: COMMON NORMALS: no CVA tenderness Extremity: COMMON NORMALS: normal to inspection Neuro: COMMON NORMALS: patient oriented x3 SENSORIUM/ORIENTATION: Yes alert GAIT: Yes Normal gait present Skin: GENERAL SKIN EXAM: dry skin Course Vital Signs: Vital signs: Vital Signs Temperature 98.2 F 04/15/23 15:29 Pulse Rate 66 04/15/23 20:04 Respiratory Rate 18 04/15/23 20:04 Blood Pressure 135/67 04/15/23 20:04 Pulse Oximetry 99 04/15/23 20:04 Oxygen Delivery Me thod Room Air 04/15/23 19:00 MDM - Female Lab Data I reviewed the patient's lab results. 04/15/23 16:31 04/15/23 16:31 Radiology Impressions Pelvic/Transvag US 04/15/23 16:08 IMPRESSION: Indistinct heterogeneous echogenic mass within the lower uterine segment that is markedly hypervascular on color flow imaging raising concern for either retained products of conception (if this patient was recently ) or uterine AVM. CTA of the pelvis may be helpful for further assessment. Laboratory Results WBC 11.3 10^3/uL (4.0-10.0) H 04/15/23 16:31 RBC 3.48 10^6/uL (4.1-5.3) L 04/15/23 16:31 Hgb 9.4 g/dL (11.5-15.3) L 04/15/23 16: Hct 29.5 % (37.0-47.0) L 04/15/23 16: MCV 84.8 fl (81-99) 04/15/23 16: MCH 27.0 pg (28.0-34.0) L 04/15/23 16: MCHC 31.9 g/dL (30.0-36.0) 04/15/23 16: RDW 13.2 % (12.1-15.1) 04/15/23 16: Plt Count 321 10^3/cmm (130-400) 04/15/23 16: MPV 10.6 fL (7.4-10.4) H 04/15/23 16:31 Neut % (Auto) 80.7 % 04/15/23 16: Lymph % (Auto) 11.5 % 04/15/23 16: Drew % (Auto) 6.7 % 04/15/23 16: Eos % (Auto) 0.4 % 04/15/23 16: Baso % (Auto) 0.4 % 04/15/23 16: Neut # (Auto) 9.15 10^3/uL (1.8-7.7) H 04/15/23 16:31 Lymph # (Auto) 1.3 10^3/uL (0.8-4.8) 04/15/23 16:31 Drew # (Auto) 0.8 10^3/uL (0.2-0.9) 04/15/23 16:31 Eos # (Auto) 0.0 10^3/uL (0.0-0.8) 04/15/23 16: Baso # (Auto) 0.0 10^3/uL (0.0-0.1) 04/15/23 16:31 Nucleated RBC % (auto) 0 % 04/15/23 16:31 Nucleated RBCs # 0.0 /100WBC 04/15/23 16:31 Sodium 137 mmol/L (136-145) 04/15/23 16:31 Potassium 4.2 mmol/L (3.5-5.1) 04/15/23 16:31 Chloride 103 mmol/L (98-107) 04/15/23 16:31 Carbon Dioxide 23 mmol/L (22-29) 04/15/23 16:31 Anion Gap 15.2 (5-19) 04/15/23 16:31 BUN 13 mg/dL (6-20) 04/15/23 16:31 Creatinine 0.7 mg/dL (0.5-0.9) 04/15/23 16:31 GFR Calculation 95.8 mL/min (90-130) 04/15/23 16:31 Glucose 111 mg/dL (65-115) 04/15/23 16:31 Calculated Osmolality 285 mOsm/kg (285-295) 04/15/23 16:31 Calcium 8.7 mg/dL (8.5-10.5) 04/15/23 16:31 Total Bilirubin 0.3 mg/dL (0.15-1.2) 04/15/23 16:31 AST 13 U/L (0-32) 04/15/23 16:31 ALT 10 U/L (0-33) 04/15/23 16:31 Alkaline Phosphatase 88 U/L (35-105) 04/15/23 16:31 Total Protein 6.9 g/dL (6.6-8.7) 04/15/23 16:31 Albumin 4.2 g/dL (3.5-5.2) 04/15/23 16:31 Globulin 2.7 g/dL (1.3-4.6) 04/15/23 16:31 Ser , Semi-Qnt 58.43 mIU/mL 04/15/23 16:31 Discharge Plan Discharge Patient Disposition: Home Clinical Impression: Vaginal bleeding Condition: Stable Prescriptions: No Action metoclopramide HCl [Reglan] 5 mg tablet 5 mg PO DAILY ibuprofen 600 mg tablet 600 mg PO Q6H PRN (Reason: pain) Qty: 30 0RF promethazine 25 mg tablet 25 mg PO Q6H PRN (Reason: nausea and vomiting) Qty: 30 0RF misoprostol [Cytotec] 200 mcg tablet 600 mcg PO Q6H Qty: 12 0RF Diclegis 10-10 mg tablet,delayed release (DR/EC) 1 tab PO BID Qty: 90 0RF Rx Instructions: Take 2 tablets at at bedtime, if no improvement add 1 tablet in the morning Discharge Orders: Discharge ED (Routine); Ordered 04/15/23 Ordered By: Sepideh Quan Referrals: Mita Patel FNP [Primary Care Provider] - Discharge Diet: Usual diet Discharge Activity: Increase activity as tolerated Activity Restrictions/Additional Instructions: Continue follow-up, as already discussed with Dr. Colvin. Return to the ER as needed for any new or worsening symptoms Stand Alone Forms: Work/School Release Coding Level of Care Code ED Personal Development Coach for Chg Fwd Documented by User: RICHARD Celaya 04/15/23 19:43 HPI - Female Genitourinary General: Chief complaint: Vaginal Bleeding Stated complaint: vaginal bleeding Time Seen by Provider: 04/15/23 15:55 PFSH ED PFSH: Medical History Migraine Spinal stenosis of lumbar region Surgical History Hx of appendectomy Hx of tonsillectomy Status post laparoscopic cholecystectomy (12/18/20) Course ED course: 1914?Dr. Colvin here to see patient Vital Signs: Vital signs: Vital Signs Temperature 98.2 F 04/15/23 15:29 Pulse Rate 66 04/15/23 20:04 Respiratory Rate 18 04/15/23 20:04 Blood Pressure 135/67 04/15/23 20:04 Pulse Oximetry 99 04/15/23 20:04 Oxygen Delivery Me thod Room Air 04/15/23 19:00 MDM - Female Medical Decision Making Care assumed from Adin Uriarte. I agree with the above history and assessment. Physical exam does reveal generally tender across the entire abdomen worse in bilateral lower abdominal quadrants. Abdomen is soft. Patient is in no acute distress lying in the bed and states her bleeding has slowed. She states that it is the worst when she is up and moving. She has no other complaints at this time. Awaiting the results of her ultrasound. Hemoglobin is 9.4 down slightly from previous 9.8. 1824 ultrasound results show indistinct heterogenous echogenic mass within the lower uterine segment that is markedly hypervascular on color flow imaging raising concern for either retained products of conception (if this patient was recently ) or uterine AVM. I called and spoke with Dr. Colvin regarding patient care. He is going to review the ultrasound images. He will be by to see the patient. He recommended adding a beta hCG quant to labs. 1940?Dr. Colvin examined patient and advised that she has lots of blood clots on exam. He advised that the patient's options were to have a D&C or get Methergine and Cytotec and be discharged home tonight. He advised that patient decided to try the medications and be discharged home. She has Dr. Colvin's phone number and will be keeping in touch with him. He advised that he will be arranging follow-up with the patient Lab Data 04/15/23 16:31 04/15/23 16:31 Radiology Impressions Pelvic/Transvag US 04/15/23 16:08 IMPRESSION: Indistinct heterogeneous echogenic mass within the lower uterine segment that is markedly hypervascular on color flow imaging raising concern for either retained products of conception (if this patient was recently ) or uterine AVM. CTA of the pelvis may be helpful for further assessment. Laboratory Results WBC 11.3 10^3/uL (4.0-10.0) H 04/15/23 16:31 RBC 3.48 10^6/uL (4.1-5.3) L 04/15/23 16:31 Hgb 9.4 g/dL (11.5-15.3) L 04/15/23 16:31 Hct 29.5 % (37.0-47.0) L 04/15/23 16:31 MCV 84.8 fl (81-99) 04/15/23 16: MCH 27.0 pg (28.0-34.0) L 04/15/23 16: MCHC 31.9 g/dL (30.0-36.0) 04/15/23 16: RDW 13.2 % (12.1-15.1) 04/15/23 16:31 Plt Count 321 10^3/cmm (130-400) 04/15/23 16: MPV 10.6 fL (7.4-10.4) H 04/15/23 16:31 Neut % (Auto) 80.7 % 04/15/23 16: Lymph % (Auto) 11.5 % 04/15/23 16: Drew % (Auto) 6.7 % 04/15/23 16: Eos % (Auto) 0.4 % 04/15/23 16: Baso % (Auto) 0.4 % 04/15/23 16: Neut # (Auto) 9.15 10^3/uL (1.8-7.7) H 04/15/23 16: Lymph # (Auto) 1.3 10^3/uL (0.8-4.8) 04/15/23 16: Drew # (Auto) 0.8 10^3/uL (0.2-0.9) 04/15/23 16: Eos # (Auto) 0.0 10^3/uL (0.0-0.8) 04/15/23 16: Baso # (Auto) 0.0 10^3/uL (0.0-0.1) 04/15/23 16: Nucleated RBC % (auto) 0 % 04/15/23 16: Nucleated RBCs # 0.0 /100WBC 04/15/23 16: Sodium 137 mmol/L (136-145) 04/15/23 16: Potassium 4.2 mmol/L (3.5-5.1) 04/15/23 16: Chloride 103 mmol/L (98-107) 04/15/23 16: Carbon Dioxide 23 mmol/L (22-29) 04/15/23 16: Anion Gap 15.2 (5-19) 04/15/23 16: BUN 13 mg/dL (6-20) 04/15/23 16: Creatinine 0.7 mg/dL (0.5-0.9) 04/15/23 16:31 GFR Calculation 95.8 mL/min (90-130) 04/15/23 16:31 Glucose 111 mg/dL (65-115) 04/15/23 16:31 Calculated Osmolality 285 mOsm/kg (285-295) 04/15/23 16:31 Calcium 8.7 mg/dL (8.5-10.5) 04/15/23 16:31 Total Bilirubin 0.3 mg/dL (0.15-1.2) 04/15/23 16:31 AST 13 U/L (0-32) 04/15/23 16:31 ALT 10 U/L (0-33) 04/15/23 16:31 Alkaline Phosphatase 88 U/L (35-105) 04/15/23 16:31 Total Protein 6.9 g/dL (6.6-8.7) 04/15/23 16:31 Albumin 4.2 g/dL (3.5-5.2) 04/15/23 16:31 Globulin 2.7 g/dL (1.3-4.6) 04/15/23 16:31 Ser , Semi-Qnt 58.43 mIU/mL 04/15/23 16:31 Discharge Plan Discharge Patient Disposition: Home Clinical Impression: Vaginal bleeding Condition: Stable Prescriptions: No Action metoclopramide HCl [Reglan] 5 mg tablet 5 mg PO DAILY ibuprofen 600 mg tablet 600 mg PO Q6H PRN (Reason: pain) Qty: 30 0RF promethazine 25 mg tablet 25 mg PO Q6H PRN (Reason: nausea and vomiting) Qty: 30 0RF misoprostol [Cytotec] 200 mcg tablet 600 mcg PO Q6H Qty: 12 0RF Diclegis 10-10 mg tablet,delayed release (DR/EC) 1 tab PO BID Qty: 90 0RF Rx Instructions: Take 2 tablets at at bedtime, if no improvement add 1 tablet in the morning Discharge Orders: Discharge ED (Routine); Ordered 04/15/23 Ordered By: Sepideh Quan Referrals: Mita Patel, [facility] [employer] [Primary Care Provider] - Discharge Diet: Usual diet Discharge Activity: Increase activity as tolerated Activity Restrictions/Additional Instructions: Continue follow-up, as already discussed with Dr. Colvin. Return to the ER as needed for any new or worsening symptoms Stand Alone Forms: Work/School Release Coding Level of Care Code ED Personal Development Coach for Montse Araya
[2023-04-15] MEDS: morphine 4 mg/mL SDV 1 mL IVP (16:33)
[2023-04-15] MEDS: ondansetron 2 mg/ML SDV 2 mL 4 MG IVP (16:33)
[2023-04-15] MEDS: sodium chloride 0.9% 500 ML 999 ML IV (16:34)
[2023-04-15 16:57] LABS: Basophils % 0.4 %; Eosinophils % 0.4 %; Hematocrit 29.5 % (37.0-47.0); Hemoglobin 9.4 g/dL (11.5-15.3); Lymphocytes # 1.3 10^3/uL (0.8-4.8); Lymphocytes % 11.5 %; Mean Corpuscular HGB Conc 31.9 g/dL (30.0-36.0); Mean Corpuscular Volume 84.8 fl (81-99); Mean Platelet Volume 10.6 fL (7.4-10.4); Monocytes # 0.8 10^3/uL (0.2-0.9); Monocytes % 6.7 %; Neutrophils # 9.15 10^3/uL (1.8-7.7); Neutrophils % 80.7 %; Nucleated Red Blood Cells % 0 %; Platelet Count 321 10^3/cmm (130-400); Red Blood Count 3.48 10^6/uL (4.1-5.3); Red Cell Distribution Width 13.2 % (12.1-15.1); White Blood Count 11.3 10^3/uL (4.0-10.0)
[2023-04-15 17:16] LABS: Alanine Aminotransferase 10 U/L (0-33); Albumin Level 4.2 g/dL (3.5-5.2); Alkaline Phosphatase 88 U/L (35-105); Anion Gap 15.2 (5-19); Aspartate Amino Transferase 13 U/L (0-32); Blood Urea Nitrogen 13 mg/dL (6-20); Calcium 8.7 mg/dL (8.5-10.5); Carbon Dioxide 23 mmol/L (22-29); Chloride 103 mmol/L (98-107); Globulin 2.7 g/dL (1.3-4.6); Glomerular Filtration Rate 95.8 mL/min (90-130); Glucose 111 mg/dL (65-115); Osmolality Calculated 285 mOsm/kg (285-295); Potassium 4.2 mmol/L (3.5-5.1); Sodium 137 mmol/L (136-145); Total Bilirubin 0.3 mg/dL (0.15-1.2); Total Protein 6.9 g/dL (6.6-8.7)
[2023-04-15 17:17] VITALS: BP 155/94; PULSE 68; O2SAT 97
[2023-04-15 18:39] LABS: HCG Quantitative 58.43 mIU/mL
[2023-04-15 19:00] VITALS: BP 134/78; PULSE 68; RESP 18; O2SAT 99
[2023-04-15] MEDS: methylergonovine 0.2 mg/mL INJ 1 mL IM (19:49)
[2023-04-15] MEDS: miSOPROStol 200 mcg Tablet 400 MCG VAGINAL (19:50)
[2023-04-15 20:04] VITALS: BP 135/67; PULSE 66; RESP 18; O2SAT 99
== END 2023-04-15 20:07 | disposition home or self-care (01) ==
PROVIDERS: Nurse Practitioner Family; Emergency Provider Physician Assistant; PCP Nurse Practitioner Family
DX: N93.9 Abnormal uterine and vaginal bleeding, unspecified (principal)
CPT/HCPCS: 76830; 76856; 80053; 84702; 85025; 96361; 96372; 96374; 96375; 99284; E0352; J2210; J2270; J2405; J7040

== ENCOUNTER → 2023-05-19 16:34 | Outpatient (BNVA) | payer BC, MEDICAID, SELFPAY | PROVIDERS: PCP Nurse Practitioner Family; Visit Provider Obstetrics & Gynecology | DX: O03.9 Complete or unspecified spontaneous abortion without complication (principal) | CPT/HCPCS: 81025 ==

== ENCOUNTER → 2023-07-23 13:40 | Outpatient (BNVA) | payer BC, MEDICAID, SELFPAY | PROVIDERS: PCP Nurse Practitioner Family; Visit Provider Obstetrics & Gynecology | DX: N39.0 Urinary tract infection, site not specified (principal); Z32.00 Encounter for pregnancy test, result unknown | CPT/HCPCS: 81000; 81025 ==

== ENCOUNTER → 2023-07-26 13:00 | Outpatient (BNVA) | payer BC, MEDICAID, SELFPAY | PROVIDERS: PCP Nurse Practitioner Family; Visit Provider Obstetrics & Gynecology | DX: Z32.00 Encounter for pregnancy test, result unknown (principal) | CPT/HCPCS: 84702 ==

== ENCOUNTER → 2023-07-29 08:44 | Outpatient (BNVA) | payer BC, MEDICAID, SELFPAY | PROVIDERS: PCP Nurse Practitioner Family; Visit Provider Obstetrics & Gynecology | DX: Z34.90 Encounter for supervision of normal pregnancy, unspecified, unspecified trimester (principal) | CPT/HCPCS: 84702 ==

== ENCOUNTER → 2023-08-11 13:27 | Outpatient (BNVA) | payer BC, MEDICAID, SELFPAY | PROVIDERS: PCP Nurse Practitioner Family; Visit Provider Nurse Practitioner Women's Health | DX: Z34.90 Encounter for supervision of normal pregnancy, unspecified, unspecified trimester (principal) | CPT/HCPCS: 81000 ==

== ENCOUNTER → 2023-08-17 08:47 | Outpatient (BNVA) | payer BC, MEDICAID, SELFPAY | PROVIDERS: PCP Nurse Practitioner Family; Visit Provider Obstetrics & Gynecology | DX: Z36.87 Encounter for antenatal screening for uncertain dates (principal) | CPT/HCPCS: 76801; 81000 ==

== ENCOUNTER → 2023-09-07 15:51 | Outpatient (BNVA) | payer BC, MEDICAID, SELFPAY | PROVIDERS: PCP Nurse Practitioner Family; Visit Provider Obstetrics & Gynecology | DX: Z34.90 Encounter for supervision of normal pregnancy, unspecified, unspecified trimester (principal) | CPT/HCPCS: 81000; 87491; 87591; 87624 ==

== ENCOUNTER → 2023-09-24 10:23 | Outpatient (BNVA) | payer BC, MEDICAID, SELFPAY | PROVIDERS: PCP Nurse Practitioner Family; Referring Provider Obstetrics & Gynecology; Visit Provider Nurse Practitioner Women's Health | DX: E66.01 Morbid (severe) obesity due to excess calories (principal); Z34.90 Encounter for supervision of normal pregnancy, unspecified, unspecified trimester | CPT/HCPCS: 82950 ==

== ENCOUNTER → 2023-09-27 10:00 | Outpatient (BNVA) | payer BC, MEDICAID, SELFPAY | PROVIDERS: PCP Nurse Practitioner Family; Visit Provider Nurse Practitioner Women's Health | DX: Z34.90 Encounter for supervision of normal pregnancy, unspecified, unspecified trimester (principal) | CPT/HCPCS: 80307; 81000; 84439; 84443; 84481; 85027; 86592; 86762; 86803; 86850; 86900; 87086; 87340; 87806 ==

== ENCOUNTER → 2023-10-01 08:20 | Outpatient (BNVA) | payer BC, MEDICAID, SELFPAY | PROVIDERS: PCP Nurse Practitioner Family; Visit Provider Obstetrics & Gynecology | DX: Z34.90 Encounter for supervision of normal pregnancy, unspecified, unspecified trimester (principal) | CPT/HCPCS: 82951; 82952 ==

== ENCOUNTER → 2023-10-19 13:22 | Outpatient (BNVA) | payer BC, MEDICAID, SELFPAY | PROVIDERS: PCP Nurse Practitioner Family; Visit Provider Nurse Practitioner Women's Health | DX: Z34.90 Encounter for supervision of normal pregnancy, unspecified, unspecified trimester (principal); R25.2 Cramp and spasm | CPT/HCPCS: 81000 ==

== ENCOUNTER → 2023-11-16 09:36 | Outpatient (BNVA) | payer BC, MEDICAID, SELFPAY | PROVIDERS: PCP Nurse Practitioner Family; Visit Provider Obstetrics & Gynecology | DX: Z34.90 Encounter for supervision of normal pregnancy, unspecified, unspecified trimester (principal) | CPT/HCPCS: 76805 ==

== ENCOUNTER → 2023-11-18 15:28 | Outpatient (BNVA) | payer BC, MEDICAID, SELFPAY | PROVIDERS: PCP Nurse Practitioner Family; Visit Provider Nurse Practitioner Family | DX: Z20.822 Contact with and (suspected) exposure to COVID-19 (principal); J06.9 Acute upper respiratory infection, unspecified; Z11.52 Encounter for screening for COVID-19 | CPT/HCPCS: 87486; 87581; 87633 ==

== ENCOUNTER → 2023-11-24 11:30 | Outpatient (BNVA) | payer BC, MEDICAID, SELFPAY | PROVIDERS: PCP Nurse Practitioner Family; Visit Provider Obstetrics & Gynecology | DX: Z34.90 Encounter for supervision of normal pregnancy, unspecified, unspecified trimester (principal) | CPT/HCPCS: 81000 ==

== ENCOUNTER → 2023-12-14 08:54 | Outpatient (BNVA) | payer BC, MEDICAID, SELFPAY | PROVIDERS: PCP Nurse Practitioner Family; Visit Provider Obstetrics & Gynecology | DX: Z36.87 Encounter for antenatal screening for uncertain dates (principal) | CPT/HCPCS: 76816; 81000 ==

== ENCOUNTER → 2024-01-10 14:14 | Outpatient (BNVA) | payer BC, MEDICAID, SELFPAY | PROVIDERS: PCP Nurse Practitioner Family; Visit Provider Obstetrics & Gynecology | DX: Z34.90 Encounter for supervision of normal pregnancy, unspecified, unspecified trimester (principal) | CPT/HCPCS: 82950; 84315 ==

== ENCOUNTER 2024-01-19 16:58 | Outpatient (CLI) | payer BC, MEDICAID, SELFPAY ==
[2024-01-19 16:58] VITALS: BMI 47.5
[2024-01-19 17:02] VITALS: RESP 17
[2024-01-19 17:10] VITALS: BP 166/77; PULSE 89
[2024-01-19 17:11] VITALS: BP 134/71; PULSE 77
[2024-01-19 17:24] VITALS: BP 129/75; PULSE 86
[2024-01-19 17:51] LABS: Bilirubin Urine Neg (Negative); Blood Urine Neg (Negative); Glucose Urine UA Norm (Normal); Ketones Urine Negative (Negative); Leukocyte Esterase Urine Trace (Negative); Nitrate Urine Negative (Negative); Protein Urine Neg (Negative); Specific Gravity, Urine 1.015 (1.005-1.030); Urine Appearance SL Hazy (CLEAR); Urine Color Yellow (Yellow); Urobilinogen Urine 1 mg/dL (Negative); pH Urine 8 (5-7)
[2024-01-19 17:52] LABS: Sulfosalicylic Acid Urine Negative (Negative)
[2024-01-19 17:53] LABS: Bacteria Urine 1+ /hpf; Mucus Urine 2+ /hpf; RBC Urine 0-4 /hpf (0-2); WBC Urine 0-4 /hpf (0-5)
[2024-01-19 17:54] VITALS: BP 138/79; PULSE 86
[2024-01-19 17:54] LABS: Add Urine Culture? No; Amorphous Sediment Urine 1+ /hpf
[2024-01-19 18:08] VITALS: BP 138/79; PULSE 86
== END 2024-01-19 18:08 | disposition home or self-care (01) ==
LOC: OPOB 16:59 → OBGYN 17:00
PROVIDERS: PCP Nurse Practitioner Family; Visit Provider Obstetrics & Gynecology
DX: O26.899 Other specified pregnancy related conditions, unspecified trimester (principal); Z3A.00 Weeks of gestation of pregnancy not specified; R10.9 Unspecified abdominal pain; M54.9 Dorsalgia, unspecified
CPT/HCPCS: 59025; 81001; 99211

== ENCOUNTER → 2024-01-27 13:21 | Outpatient (BNVA) | payer BC, MEDICAID, SELFPAY | PROVIDERS: PCP Nurse Practitioner Family; Visit Provider Obstetrics & Gynecology | DX: Z34.90 Encounter for supervision of normal pregnancy, unspecified, unspecified trimester (principal) | CPT/HCPCS: 76816 ==

== ENCOUNTER 2024-02-17 16:20 | Outpatient (CLI) | payer BC, MEDICAID, SELFPAY ==
[2024-02-17] VITALS (9 sets, daily range): BP systolic 112–151; BP diastolic 52–77; PULSE 74–114; O2SAT 99–100; BMI 48.3
[2024-02-17] MEDS: NIFEdipine 10 mg Capsule 30 MG PO (17:30)
[2024-02-17] MEDS: terbutaline 1 mg/mL INJ 0.25 MG SUBCUT (18:18)
[2024-02-17] MEDS: acetaminophen 500 mg Tablet 1000 MG PO (18:18)
== END 2024-02-17 18:48 | disposition home or self-care (01) ==
LOC: OPOB 16:24 → OBGYN 16:24
PROVIDERS: PCP Nurse Practitioner Family; Visit Provider Obstetrics & Gynecology
DX: O26.899 Other specified pregnancy related conditions, unspecified trimester (principal); Z3A.00 Weeks of gestation of pregnancy not specified; R10.9 Unspecified abdominal pain
CPT/HCPCS: 59025; 96372; 99211; J3105

== ENCOUNTER 2024-02-25 19:30 | Outpatient (CLI) | payer BC, MEDICAID, SELFPAY ==
[2024-02-25] VITALS (7 sets, daily range): BP systolic 106–150; BP diastolic 62–86; PULSE 77–117; RESP 16; TEMP 35.9–36.4; BMI 47.9
--- NOTE | 2024-02-25 20:50 | PM.OBTRLD ---
OB L&D Triage Visit Information: Date of evaluation: 02/25/24 Comments/Additional reason(s) for visit: 33 y.o. A2 EDC April 01, 2024 At 34 w 6 d No complications Presents to L&D c/o uterine contractions No bleeding, fluid leakage + active movements Evaluation: monitor accelerations: Present 15x15 Vital signs: Vital Signs - 24 hr 02/25/24 19:35 02/25/24 19:38 02/25/24 19:40 Temperature 96.6 F L Pulse Rate 117 H 103 H Respiratory Rate Blood Pressure 150/86 138/73 Oxygen Delivery Me thod Room Air 02/25/24 20:01 02/25/24 20:21 02/25/24 20:41 Temperature Pulse Rate 101 H 95 95 Respiratory Rate Blood Pressure 106/62 135/74 123/75 Oxygen Delivery Me thod 02/25/24 20:54 02/25/24 20:54 02/25/24 21:00 Temperature 97.5 F L Pulse Rate 77 77 Respiratory Rate 16 Blood Pressure 142/68 142/68 Oxygen Delivery Me thod Room Air Care DAR Calculator Estimated Delivery Date Method Current WG Current Estimate 04/01/24 LMP (Certain) 35w 0d Other Estimates 04/03/24 Ultrasound #1 34w 5d Expected Delivery Route/Plan Weight 320 lbs; 5?8? VS normal Comfortable, in no discomfort Awake, alert Abd: soft, nontender Cervix: long / closed / high External monitor: no uterine contractions heart tracing good variability, + accelerations Final Diagnosis Final Diagnosis (1) : Plan: 34 w 6 d Not in labor Likely BraxtonHicks contractions Plan discharge to home f/u next OB appointment labor precautions given Status: Acute Qualifiers: Weeks of gestation: 24 weeks Qualified Code(s): Z3A.24 - 24 weeks gestation of Code(s): Z34.90 - Encounter for supervision of normal , unspecified, unspecified trimester Coding Level of Care Code Acute Code for Chg Fwd Diagnoses 24 weeks gestation of Z3A.24 Weeks of gestation: 24 weeks Time Spent (min) 60
== END 2024-02-25 21:06 | disposition home or self-care (01) ==
LOC: OPOB 19:30 → OBGYN 19:31
PROVIDERS: PCP Nurse Practitioner Family; Visit Provider Obstetrics & Gynecology
DX: O26.892 Other specified pregnancy related conditions, second trimester (principal); Z3A.24 24 weeks gestation of pregnancy
CPT/HCPCS: 59025; 99211

== ENCOUNTER → 2024-03-07 08:00 | Outpatient (BNVA) | payer BC, MEDICAID, SELFPAY | PROVIDERS: PCP Nurse Practitioner Family; Visit Provider Obstetrics & Gynecology | DX: Z34.93 Encounter for supervision of normal pregnancy, unspecified, third trimester (principal) | CPT/HCPCS: 84315; 87081 ==

== ENCOUNTER 2024-03-13 10:00 | Outpatient (CLI) | payer BC, MEDICAID, SELFPAY ==
[2024-03-13 10:17] VITALS: BP 133/76; PULSE 87
[2024-03-13 10:21] VITALS: BMI 49.2
[2024-03-13 10:32] VITALS: BP 133/76; PULSE 84
[2024-03-13 10:47] VITALS: BP 132/76; PULSE 63
[2024-03-13 11:02] VITALS: BP 134/75; PULSE 63
[2024-03-13 11:07] VITALS: BP 134/75; PULSE 63
== END 2024-03-13 11:08 | disposition home or self-care (01) ==
LOC: OPOB 10:05 → OBGYN 10:05
PROVIDERS: PCP Nurse Practitioner Family; Visit Provider Obstetrics & Gynecology
DX: O16.9 Unspecified maternal hypertension, unspecified trimester (principal); Z3A.00 Weeks of gestation of pregnancy not specified; R51.9 Headache, unspecified
CPT/HCPCS: 59025; 84315; 99211

== ENCOUNTER 2024-03-15 10:30 | Outpatient (CLI) | payer BC, MEDICAID, SELFPAY ==
[2024-03-15 10:30] VITALS: BMI 48.6
[2024-03-15 11:01] VITALS: BP 135/80; PULSE 68
[2024-03-15 11:10] VITALS: BP 137/81; PULSE 57
== END 2024-03-15 11:15 | disposition home or self-care (01) ==
LOC: OPOB 10:45 → OBGYN 10:46
PROVIDERS: PCP Nurse Practitioner Family; Visit Provider Obstetrics & Gynecology
DX: O16.9 Unspecified maternal hypertension, unspecified trimester (principal); Z3A.00 Weeks of gestation of pregnancy not specified
CPT/HCPCS: 59025

== ENCOUNTER 2024-03-20 09:30 | Outpatient (CLI) | payer BC, MEDICAID, SELFPAY ==
[2024-03-20 09:30] VITALS: BMI 49.4
[2024-03-20 09:44] VITALS: BP 121/67; PULSE 86
[2024-03-20 10:04] VITALS: BP 124/68; PULSE 67
[2024-03-20 10:20] VITALS: BP 124/68; PULSE 67
== END 2024-03-20 10:20 | disposition home or self-care (01) ==
LOC: OPOB 09:36 → OBGYN 09:37
PROVIDERS: Absent Provider Obstetrics & Gynecology; PCP Nurse Practitioner Family; Visit Provider Obstetrics & Gynecology
DX: O16.9 Unspecified maternal hypertension, unspecified trimester (principal); Z3A.00 Weeks of gestation of pregnancy not specified
CPT/HCPCS: 59025; 84315; 99211

== ENCOUNTER 2024-03-21 21:05 | Outpatient (CLI) | payer BC, MEDICAID, SELFPAY ==
[2024-03-21 21:05] VITALS: BMI 49.4
[2024-03-21 21:21] VITALS: BP 134/73; PULSE 79
[2024-03-21 21:44] VITALS: BP 120/64; PULSE 74
[2024-03-21 22:00] VITALS: BP 123/74; PULSE 71
[2024-03-21 22:44] VITALS: BP 127/72; PULSE 69
[2024-03-21 22:59] VITALS: BP 113/62; PULSE 68
[2024-03-21 23:14] VITALS: BP 126/74; PULSE 83
[2024-03-21 23:34] LABS: Nitrazine Paper, PH Inconclusive
== END 2024-03-21 23:12 | disposition home or self-care (01) ==
LOC: OPOB 21:11 → OBGYN 21:13
PROVIDERS: PCP Nurse Practitioner Family; Visit Provider Obstetrics & Gynecology
DX: O26.899 Other specified pregnancy related conditions, unspecified trimester (principal); Z3A.00 Weeks of gestation of pregnancy not specified; R10.9 Unspecified abdominal pain
CPT/HCPCS: 59025; 83986; 99211

== ENCOUNTER 2024-03-26 20:16 | Outpatient (CLI) | payer BC, MEDICAID, SELFPAY ==
[2024-03-26 20:23] VITALS: BMI 49.1
[2024-03-26 20:49] VITALS: BP 137/82; PULSE 77
[2024-03-26 21:03] VITALS: BP 137/83; PULSE 75
[2024-03-26 21:18] VITALS: BP 139/81; PULSE 75
[2024-03-26 21:29] LABS: Actim Prom Negative
[2024-03-26 21:33] VITALS: BP 137/81; PULSE 75
[2024-03-26 21:48] VITALS: BP 142/84; BP 146/78; PULSE 66; PULSE 75; TEMP 35.6
[2024-03-26 21:49] VITALS: BP 146/78; PULSE 66; TEMP 35.6
== END 2024-03-26 21:48 | disposition home or self-care (01) ==
LOC: OPOB 20:17 → OBGYN 20:18
PROVIDERS: PCP Nurse Practitioner Family; Visit Provider Obstetrics & Gynecology
DX: O26.899 Other specified pregnancy related conditions, unspecified trimester (principal); Z3A.00 Weeks of gestation of pregnancy not specified; N89.8 Other specified noninflammatory disorders of vagina
CPT/HCPCS: 59025; 84112; 99211

== ENCOUNTER 2024-03-28 20:24 | Inpatient (IN) | payer BC, MEDICAID, SELFPAY ==
[2024-03-28 19:00] VITALS: BMI 49.1
--- NOTE | 2024-03-28 21:35 | P.HP_ITS ---
Providers/Chief Complaint 2 Admitting Physician: Jace Colvin MD Primary PAN RECLAIM PROCESSOR: Jace Colvin MD Primary Care Provider: CARTER Monroy Chief Complaint: 39W HATTIE DAR 04/01/24 MACHELLE Aníbal HPI PAN RECLAIM PROCESSOR History of Present Illness 34 y.o. A2 EDC April 01, 2024 At 39 w 3 d No complications Admitted for elective induction of labor No c/o + active movements POBHx: h/o suction D&C for SAB with excessive vaginal bleeding h/o x two Present Details : 5 Para: 2 Labs Rubella: Immune RPR: Negative GBS: Negative Medications/Allergies Home Medications Medication Instructions Recorded Confirmed Last Taken Type vitamins no.119-iron 1 tab PO DAILY #30 tabs 05/19/23 03/29/24 3 Days Ago Rx fumarate 29 mg-folic acid 1 mg ~03/23/24 tablet magnesium oxide 500 mg capsule 500 mg PO .QHS 30 days #30 caps 10/19/23 03/29/24 3 Days Ago Rx ~03/23/24 Allergies Allergy/AdvReac Type Severity Reaction Status Date / Time Sulfa (Sulfonamide Allergy Severe ALGY-Difficulty Verified 03/27/24 08:30 Antibiotics) Breathing tramadol Allergy Intermediate ALGY-Hives Verified 03/27/24 08:30 chlorpheniramine Allergy Mild ADR-Nausea Verified 03/27/24 08:30 [From Cardec (phenylephrin-chlorphn)] phenylephrine Allergy Mild ADR-Nausea Verified 03/27/24 08:30 [From Cardec (phenylephrin-chlorphn)] PFSH PAN RECLAIM PROCESSOR 2 PFSH: Medical History Migraine Spinal stenosis of lumbar region Surgical History Status post laparoscopic cholecystectomy (12/18/20) Hx of appendectomy Hx of tonsillectomy Personal Safety: Do you feel safe at home: Yes Victim of physical abuse: No Victim of emotional abuse: No Victim of sexual abuse: No History History History 2 5 Term 1 1 Miscarriages/Ectopic 2 Living Children 2 Care DAR Calculator 2 Estimated Delivery Date Method Current WG Current Estimate 04/01/24 LMP (Certain) 39w 5d Other Estimates 04/03/24 Ultrasound #1 39w 3d Vitals/I&O/Wt Last Vital Signs Temp 97.8 F 03/29/24 21:33 Pulse 59 L 03/29/24 21:33 Resp 18 03/29/24 21:33 BP 116/43 03/29/24 21:33 Pulse Ox 97 03/29/24 21:33 O2 Del Method Room Air 03/29/24 21:33 03/29/24 03/29/24 03/30/24 14:59 22:59 06:59 Intake Total 1158.216 / 9833.070 1993 / 4158.216 Balance 1158.216 / 5431.725 1458 / 4158.216 Weight last 48 hrs Weight 323 lb 5 oz Weight 323 lb 5 oz Physical Exam 2 Narrative: Weight 325 lbs; 5?8? VS normal Comfortable, awake, alert Lungs: clear Cor: RRR Abd: nontender FH 39 cm, cephalic Cervix: 5 cm / 50% / -4 / posterior Ext: normal External monitor: heart tracing good variability, + accelerations Data 03/29/24 21:33 Results Labs OB ([facility]): 2 Obstetrics US 01/27/24 Blood Type B Positive 03/28/24 Antibody Screen Negative 03/28/24 Hct 28.6 % (36-47) L 03/29/24 Hgb 9.20 g/dL (11.27-16.99) L 03/29/24 Rho(D) Type Rh positive 03/28/24 Plt Count 211 10^3/cmm (157-399) 03/29/24 Hep Bs Antigen Non-reactive (Nonreactive) 09/27/23 Hepatitis C Antibody Non-reactive (Nonreactive) 09/27/23 Rubella IgG Antibody 380.8 IU/mL (0.0-10.0) H 09/27/23 RPR Nonreactive (Nonreactive) 09/27/23 HIV 1&2 Ab & HIV 1 Ag Non-reactive (Non-Reactiv) 09/27/23 TSH 1.27 uIU/mL (0.27-4.20) 09/27/23 Free T4 1.12 ng/dL (0.82-1.77) 09/27/23 C.trachomatis RNA (TMA) Not detected (NOT DETECTED) N.gonorrhoeae RNA (TMA) Not detected (NOT DETECTED) T. vaginalis Amp RNA Not detected (NOT DETECTED) 09/07/23 Chlamydia/GC Comment See note 09/07/23 Cystic Fibrosis Screen Negative 09/27/23 Glucose 1 Hr 50 gm 169 mg/dL (85-140) H 09/24/23 Gest Glucose Tolerance 137 mg/dL (70-139) 01/10/24 Ser , Semi-Qnt 2470.00 mIU/mL 07/29/23 HCG, Qual Positive (Negative) H 07/23/23 Urine Opiates Screen Negative ng/mL (Negative) 09/27/23 Ur Barbiturates Screen Negative ng/mL (Negative) 09/27/23 Ur Phencyclidine Scrn Negative ng/mL (Negative) 09/27/23 Ur Amphetamines Screen Negative ng/mL (Negative) 09/27/23 U Benzodiazepines Scrn Negative ng/mL (Negative) 09/27/23 Urine Cocaine Screen Negative ng/mL (Negative) 09/27/23 U Marijuana (THC) Screen Negative ng/mL (Negative) 09/27/23 Micro Urine Specimen 09/27/23 Pap Smear Interpret See note 09/07/23 A&P Assessment and plan (1) Encounter for induction of labor: 39 w 3 d Admit for induction of labor Fetus reassuring Cervix already at 5 cm, having irregular uterine contractions Plan start Pitocin augmentation of labor Morbid obesity h/o x two Rh + Attestations 2 Medical Necessity Statement*: patient at 39 w 3 d, admitted for induction of labor Coding Level of Care Code Acute Code for Chg Fwd Diagnoses Encounter for induction of labor Z34.90 Time Spent (min) 45
[2024-03-28 21:49] LABS: Basophils # 0.1 10^3/uL (0.0-0.1); Basophils % 0.6 %; Eosinophils # 0.1 10^3/uL (0.0-0.8); Eosinophils % 1.2 %; Hematocrit 30.6 % (36-47); Lymphocytes # 1.7 10^3/uL (0.8-4.8); Mean Corpuscular HGB Conc 32.7 g/dL (30-55); Mean Corpuscular Hemoglobin 26.5 pg (27-33); Mean Corpuscular Volume 81.2 fl (85-98); Mean Platelet Volume 11.7 fL (7.4-10.4); Monocytes # 0.8 10^3/uL (0.2-0.9); Monocytes % 7.9 %; Neutrophils # 7.71 10^3/uL (1.8-7.7); Nucleated Red Blood Cells % 0 %; Platelet Count 238 10^3/cmm (157-399); Red Blood Count 3.77 10^6/uL (3.85-5.65); Red Cell Distribution Width 13.4 % (12.1-15.1); White Blood Count 10.41 10^3/uL (3.29-11.43)
[2024-03-28 22:32] VITALS: BP 140/83; PULSE 73
[2024-03-28] MEDS: oxytocin 30 UNIT/500 ML BAG IV (22:36)
[2024-03-28] MEDS: dextrose 5%-lactated ringers 1,000 ML 124 ML IV (22:37)
[2024-03-28 22:55] VITALS: BP 139/84; PULSE 80
[2024-03-28 23:03] VITALS: BP 152/83; PULSE 78
[2024-03-28 23:32] VITALS: BP 144/85; PULSE 80
[2024-03-29] VITALS (41 sets, daily range): BP systolic 109–158; BP diastolic 43–88; PULSE 50–139; RESP 15–18; TEMP 36.6–36.9; O2SAT 97–99; BMI 49.1
[2024-03-29] MEDS: fentaNYL 50 mcg/mL INJ 2mL IVP ×3 (03:38→07:50)
--- NOTE | 2024-03-29 06:16 | P.ANESASSM_ITS ---
Pre-Anesthetic Assessment Height/Weight: Height 1.73 m Weight 146.652 kg Pulse Resp BP 54 L 16 158/81 03/29/24 06:02 03/29/24 03:38 03/29/24 06:02 Preop Diagnosis: IUP labor epidural Familial anesthetic complications: None Was Beta Kenia taken within 24 hours: N/A Social No alcohol and No tobacco Exam alert and oriented x 3 Airway Mallampati: Class III Dentition: full History/ROS No significant history except as noted Pulmonary None reported CV/HEM Hypertension pt states she has a sticky valve but does not know which one. None reported Hepatic None reported GI None reported Metabolic Morbid Obesity [facility] Lumbar spinal stenosis Neuropsych None reported Anesthetic Plan ASA status: 3 Anesthesia: Anesthesia Evaluation and Regional (specify below) (epidural ) Risk of > 500 ml blood loss (7ml/kg in children): Yes, adequate IV access and fluids planned Medications/Allergies Home Medications Medication Instructions Recorded Confirmed Last Taken Type vitamins no.119-iron 1 tab PO DAILY #30 tabs 05/19/23 03/27/24 3 Days Ago Rx fumarate 29 mg-folic acid 1 mg ~03/23/24 tablet magnesium oxide 500 mg capsule 500 mg PO .QHS 30 days #30 caps 10/19/23 03/27/24 3 Days Ago Rx ~03/23/24 Allergies Allergy/AdvReac Type Severity Reaction Status Date / Time Sulfa (Sulfonamide Allergy Severe ALGY-Difficulty Verified 03/27/24 08:30 Antibiotics) Breathing tramadol Allergy Intermediate ALGY-Hives Verified 03/27/24 08:30 chlorpheniramine Allergy Mild ADR-Nausea Verified 03/27/24 08:30 [From Cardec (phenylephrin-chlorphn)] phenylephrine Allergy Mild ADR-Nausea Verified 03/27/24 08:30 [From Cardec (phenylephrin-chlorphn)] Current Medications Generic Name Dose Route Start Last Admin Trade Name Freq PRN Reason Stop Dose Admin Fentanyl 25 - 100 mcg 03/28/24 21:09 03/29/24 03:38 Fentanyl 50 Mcg/Ml Inj 2ml IVP 25 mcg Q1H PRN Administration SEVERE PAIN Dextrose/Lactated Ringer's 1,000 mls @ 125 mls/hr 03/28/24 21:00 03/29/24 05:00 Dextrose 5%-Lactated Ringers IV 0 mls/hr .Q8H ANITA Infusion Oxytocin 30 unit in 500 mls @ 1 mls/hr 03/28/24 22:30 03/29/24 06:12 Pitocin IV 19 milliunit/min .Q24H ANITA 19 mls/hr Titration Protocol 1 MILLIUNIT/MIN Lactated Ringer's 2,000 mls @ 999 mls/hr 03/29/24 05:08 03/29/24 05:00 Lactated Ringers IV 999 mls/hr .Q2H1M PRN Administration See label comments PFSH Anesthesia Medical History Migraine Spinal stenosis of lumbar region Surgical History Status post laparoscopic cholecystectomy (12/18/20) Hx of appendectomy Hx of tonsillectomy Female Reproductive History : 5 Data Anesthesia 03/28/24 19:50 Short CBC 03/28/24 Range/Units 19:50 WBC 10.41 (3.29-11.43) 10^3/uL Hgb 10.00 L (11.27-16.99) g/dL Hct 30.6 L (36-47) % MCV 81.2 L (85-98) fl Plt Count 238 (157-399) 10^3/cmm Neut % (Auto) 74.0 % Neut # (Auto) 7.71 H (1.8-7.7) 10^3/uL Blood Bank 03/28/24 19:50 Blood Type B Positive Rho(D) Type Rh positive Antibody Screen Negative Cardiac Studies: 2 No Data to Display
[2024-03-29] MEDS: ondansetron 2 mg/ML SDV 2 mL 4 MG IVP (07:45)
--- NOTE | 2024-03-29 08:15 | PM.OBGYPN ---
SENIOR PROJECT COORDINATOR Subjective Subjective: Interval history: Fetus reassuring Having moderately painful uterine contractions On Pitocin Cervix: 6 cm / 100 % / -1 station / BBOW AROM clear fluid Labor: Station: 0 Amniotic Membrane Status: Ruptured Monitor Mode: External Contraction Pattern: Regular Status: Category I Vitals/I&O/Wt Last Vital Signs Temp 97.8 F 03/29/24 21:33 Pulse 59 L 03/29/24 21:33 Resp 18 03/29/24 21:33 BP 116/43 03/29/24 21:33 Pulse Ox 97 03/29/24 21:33 O2 Del Method Room Air 03/29/24 21:33 03/29/24 03/29/24 03/30/24 14:59 22:59 06:59 Intake Total 1158.216 / 6983.028 6532 / 4158.216 Balance 1158.216 / 3160.673 1374 / 4158.216 Weight last 48 hrs Weight 323 lb 5 oz Weight 323 lb 5 oz Data 03/29/24 21:33 A&P Assessment and plan (1) Encounter for induction of labor: Attestations Medical Necessity Statement*: patient at 39 w 4 d, admitted for induction of labor Coding Level of Care Code Acute Code for Chg Fwd Diagnoses Encounter for induction of labor Z34.90 Time Spent (min) 20
[2024-03-29] MEDS: lidocaine 2% INJ 20 mL INJECTION (09:06)
[2024-03-29] MEDS: acetaminophen 325 mg Tablet 650 MG PO (10:58)
[2024-03-29] MEDS: PRENATAL VIT NO.130/IRON/FOLIC 1 EACH TABLET PO (10:58)
[2024-03-29] MEDS: ferrous sulfate EC 325 mg Tablet PO (10:58)
--- NOTE | 2024-03-29 11:50 | PM.DELIVERY ---
Delivery Note: Date of delivery: March 29, 2024 Pre-delivery diagnoses: 39 w 3 d admitted for elective induction of labor Post-delivery diagnoses: vaginal delivery second-degree perineal laceration repaired Procedure: induction of labor pitocin augmentation of labor vaginal delivery repair of second-degree perineal laceration Op report anesthesia: None Delivering Physician: Jace Colvin MD Estimated blood loss (mL): 300 Findings: Precipitous , vigorous female infant Normal placenta and cord Cord blood obtained Small second-degree perineal laceration repaired Lidocaine 1% 5 cc given locally EBL: 300 cc No complications Pre-Delivery Course: normal labor course Delivery: vaginal Post-Delivery Status: good History History History 5 Term 1 1 Miscarriages/Ectopic 2 Living Children 2 A&P Assessment and plan (1) Vaginal delivery: care Coding Level of Care Code Acute Code for Chg Fwd Diagnoses Vaginal delivery O80 Time Spent (min) 60
[2024-03-29] MEDS: HYDROcodone-acetaminophen 5-325 mg Tablet PO ×2 (12:13→18:06)
[2024-03-29] MEDS: benzocaine-menthol 78 gm Canister 1 SPRAY TOPICAL (12:13)
--- NOTE | 2024-03-29 12:23 | PC.NURSE ---
Pt up to bathroom without difficulty. Etelvina care by pt. Pad and gown changed. Pt then ambulated to OB9. Oriented to room/call light. Proud parent pack and feeding log discussed.
[2024-03-29] MEDS: ibuprofen 800 mg tablet PO ×2 (14:05→20:19)
--- NOTE | 2024-03-29 15:02 | PC.NURSE ---
Pt requesting quiet time and to be able to skip rounding/assessment from [id number].
[2024-03-29] MEDS: docusate sodium 100 mg Capsule PO (18:06)
[2024-03-29 21:45] LABS: Hematocrit 28.6 % (36-47); Mean Corpuscular HGB Conc 32.2 g/dL (30-55); Mean Corpuscular Hemoglobin 26.4 pg (27-33); Mean Corpuscular Volume 81.9 fl (85-98); Mean Platelet Volume 11.7 fL (7.4-10.4); Platelet Count 211 10^3/cmm (157-399); Red Blood Count 3.49 10^6/uL (3.85-5.65); Red Cell Distribution Width 13.3 % (12.1-15.1); White Blood Count 9.46 10^3/uL (3.29-11.43)
[2024-03-30] MEDS: HYDROcodone-acetaminophen 5-325 mg Tablet PO ×2 (00:19→08:08)
[2024-03-30 05:00] VITALS: BP 146/76; PULSE 63; RESP 18; TEMP 36.4; O2SAT 98
[2024-03-30] MEDS: ibuprofen 800 mg tablet PO (08:08)
[2024-03-30] MEDS: docusate sodium 100 mg Capsule PO (08:08)
[2024-03-30] MEDS: PRENATAL VIT NO.130/IRON/FOLIC 1 EACH TABLET PO (08:08)
[2024-03-30] MEDS: ferrous sulfate EC 325 mg Tablet PO (08:08)
[2024-03-30 09:34] VITALS: BP 112/66; PULSE 63; RESP 17; TEMP 36.9
[2024-03-30 12:50] VITALS: BP 162/76; PULSE 63; TEMP 36.7
--- NOTE | 2024-03-30 14:05 | P.PN_ITS ---
SITE RELIABILITY ENGINEER Subjective 2 Subjective: Interval history: no c/o no bleeding, pain eating, voiding, ambulating well caring for without any problems Labor: Station: 0 Amniotic Membrane Status: Ruptured Monitor Mode: External Contraction Pattern: Regular Status: Category I Vitals/I&O/Wt Last Vital Signs Temp 98.1 F 03/30/24 12:50 Pulse 63 03/30/24 12:50 Resp 17 03/30/24 09:34 BP 162/76 03/30/24 12:50 Pulse Ox 98 03/30/24 05:00 O2 Del Method Room Air 03/30/24 09:34 Physical Exam 2 Narrative: afebrile, VS normal comfortable, awake, alert Abd: soft, nontender. fundus firm Ext: no edema; nontender Data 03/29/24 21:33 A&P Assessment and plan (1) Vaginal delivery: PPD #1 doing well discharge to home today instructions and precautions given call/return if fever, chills, headache, blurry vision, nausea, vomiting, abdominal pain; vaginal bleeding or discharge; shortness of breath, chest pain, leg pains or swelling; inability to void, perineal pain or swelling; feelings of depression or mood changes; thoughts of suicide or harming others; inability to care for baby. f/u in 6 weeks or PRN (2) Anemia: patient asymptomatic instructed patient to take iron PO 1-2 x / day and to eat iron-rich fluids call / return if dizziness, weakness, chest pain, palpitations, shortness of breath plan repeat Hgb at her visit Attestations 2 Medical Necessity Statement*: patient s/p vaginal delivery, plan discharge to home today Coding Level of Care Code Acute Code for Chg Fwd Diagnoses Vaginal delivery O80 Anemia D64.9 Time Spent (min) 20
--- NOTE | 2024-03-30 15:05 | P.DS_ITS ---
Discharge Providers JOURNEYMAN ELECTRICIAN Date of Admission: 03/28/24 20:24 Date of Discharge: 03/30/24 Attending Provider at Admission: Jace Colvin MD Attending Provider at Discharge: Jace Colvin MD Consults: none Primary JOURNEYMAN ELECTRICIAN: Jace Colvin MD Primary Care Provider: CARTER Monroy Diagnoses at Discharge Discharge Diagnosis (1) Vaginal delivery: Details from hospital stay: 34 y.o. A2 admitted at 39 w 3 d for induction of labor patient progressed with normal labor course had vaginal delivery with repair of small second-degree perineal laceration no complications in the period was discharge to home on first day Status: Acute (2) Anemia: Details from hospital stay: patient asymptomatic instructed patient to take iron PO 1-2 x / day and to eat iron-rich fluids call / return if dizziness, weakness, chest pain, palpitations, shortness of breath plan repeat Hgb at her visit Status: Acute Reason for Visit Reason for Visit: 39W HATTIE DAR 04/01/24 MACHELLE Spangler Brief Histor y: 34 y.o. A2 admitted at 39 w 3 d for induction of labor Hospital Course Hospital Course 34 y.o. A2 admitted at 39 w 3 d for induction of labor patient progressed with normal labor course had vaginal delivery with repair of small second-degree perineal laceration no complications in the period was discharge to home on first day Information Peripartum Data: Delivery Method: Vaginal Laceration description: Perineal - 2nd Degree Episiotomy description: None complications: none Physical Exam Narrative: afebrile, VS normal comfortable, awake, alert Abd: soft, nontender. fundus firm Ext: no edema; nontender History History History 5 Term 1 1 Miscarriages/Ectopic 2 Living Children 2 Discharge Data Studies Completed and Pending Laboratory Results WBC 9.46 10^3/uL (3.29-11.43) 03/29/24 21:33 RBC 3.49 10^6/uL (3.85-5.65) L 03/29/24 21:33 Hgb 9.20 g/dL (11.27-16.99) L 03/29/24 21:33 Hct 28.6 % (36-47) L 03/29/24 21:33 MCV 81.9 fl (85-98) L 03/29/24 21:33 MCH 26.4 pg (27-33) L 03/29/24 21:33 MCHC 32.2 g/dL (30-55) 03/29/24 21:33 RDW 13.3 % (12.1-15.1) 03/29/24 21:33 Plt Count 211 10^3/cmm (157-399) 03/29/24 21:33 MPV 11.7 fL (7.4-10.4) H 03/29/24 21:33 Neut % (Auto) 74.0 % 03/28/24 19:50 Lymph % (Auto) 16.0 % 03/28/24 19:50 [place] % (Auto) 7.9 % 03/28/24 19:50 Eos % (Auto) 1.2 % 03/28/24 19:50 Baso % (Auto) 0.6 % 03/28/24 19:50 Neut # (Auto) 7.71 10^3/uL (1.8-7.7) H 03/28/24 19:50 Lymph # (Auto) 1.7 10^3/uL (0.8-4.8) 03/28/24 19:50 [place] # (Auto) 0.8 10^3/uL (0.2-0.9) 03/28/24 19:50 Eos # (Auto) 0.1 10^3/uL (0.0-0.8) 03/28/24 19:50 Baso # (Auto) 0.1 10^3/uL (0.0-0.1) 03/28/24 19:50 Nucleated RBC % (auto) 0 % 03/28/24 19:50 Nucleated RBCs # 0.0 /100WBC 03/28/24 19:50 Blood Type B Positive 03/28/24 19:50 Rho(D) Type Rh positive 03/28/24 19:50 Antibody Screen Negative 03/28/24 19:50 Procedures Performed induction of labor vaginal delivery repair of second-degree perineal laceration Vitals Last Vital Signs Temp 98.1 F 03/30/24 12:50 Pulse 63 03/30/24 12:50 Resp 17 03/30/24 09:34 BP 162/76 03/30/24 12:50 Pulse Ox 98 03/30/24 05:00 O2 Del Method Room Air 03/30/24 09:34 Results Labs OB ([facility]): Obstetrics US 01/27/24 Blood Type B Positive 03/28/24 Antibody Screen Negative 03/28/24 Hct 28.6 % (36-47) L 03/29/24 Hgb 9.20 g/dL (11.27-16.99) L 03/29/24 Rho(D) Type Rh positive 03/28/24 Plt Count 211 10^3/cmm (157-399) 03/29/24 Hep Bs Antigen Non-reactive (Nonreactive) 09/27/23 Hepatitis C Antibody Non-reactive (Nonreactive) 09/27/23 Rubella IgG Antibody 380.8 IU/mL (0.0-10.0) H 09/27/23 RPR Nonreactive (Nonreactive) 09/27/23 HIV 1&2 Ab & HIV 1 Ag Non-reactive (Non-Reactiv) 09/27/23 TSH 1.27 uIU/mL (0.27-4.20) 09/27/23 Free T4 1.12 ng/dL (0.82-1.77) 09/27/23 C.trachomatis RNA (TMA) Not detected (NOT DETECTED) N.gonorrhoeae RNA (TMA) Not detected (NOT DETECTED) T. vaginalis Amp RNA Not detected (NOT DETECTED) 09/07/23 Chlamydia/GC Comment See note 09/07/23 Cystic Fibrosis Screen Negative 09/27/23 Glucose 1 Hr 50 gm 169 mg/dL (85-140) H 09/24/23 Gest Glucose Tolerance 137 mg/dL (70-139) 01/10/24 Ser , Semi-Qnt 2470.00 mIU/mL 07/29/23 HCG, Qual Positive (Negative) H 07/23/23 Urine Opiates Screen Negative ng/mL (Negative) 09/27/23 Ur Barbiturates Screen Negative ng/mL (Negative) 09/27/23 Ur Phencyclidine Scrn Negative ng/mL (Negative) 09/27/23 Ur Amphetamines Screen Negative ng/mL (Negative) 09/27/23 U Benzodiazepines Scrn Negative ng/mL (Negative) 09/27/23 Urine Cocaine Screen Negative ng/mL (Negative) 10/30/23 U Marijuana (THC) Screen Negative ng/mL (Negative) 09/27/23 Micro Urine Specimen 09/27/23 Pap Smear Interpret See note 09/07/23 Discharge Plan Discharge Patient Disposition: Home Condition: Stable Prescriptions: Continued PNV 119-iron fum-folic acid 29 mg iron- 1 mg tablet 1 tab PO DAILY Qty: 30 12RF magnesium oxide 500 mg capsule 500 mg PO .QHS 30 Days Qty: 30 3RF Discharge Orders: Discharge Order (Routine); Ordered 03/30/24 Ordered By: Jace Colvin Referrals: Jace Colvin MD [Physician] - 05/09/24 9:00 am Discharge Diet: Usual diet Discharge Activity: Increase activity as tolerated Patient Instructions: Depression (DC), Bleeding (DC), Preeclampsia and Eclampsia After Delivery (GEN), Hemorrhage (DC), OB Discharge Report, OB Food/Drug Interaction Guide, Opioid Safety, OB Home Care, OB Vaginal Deliveries - [facility] Discharge Attestations JOURNEYMAN ELECTRICIAN Time Spent in Discharge Care*: less than 30 min Coding Level of Care Code Acute Code for Chg Fwd Diagnoses Vaginal delivery O80 Anemia D64.9 Time Spent (min) 20
== END 2024-03-30 13:15 | disposition home or self-care (01) | DRG 807 ==
LOC: LAB 20:24 → OBGYN 20:24
PROVIDERS: Admitting Provider Obstetrics & Gynecology; PCP Nurse Practitioner Family; Visit Provider Obstetrics & Gynecology
DX: O99.214 Obesity complicating childbirth (principal); Z37.0 Single live birth; O70.1 Second degree perineal laceration during delivery; Z3A.39 39 weeks gestation of pregnancy; O90.81 Anemia of the puerperium
CPT/HCPCS: 36415; 59025; 59409; 84315; 85025; 85027; 86850; 86900; 96374; 96376; J2405; J2590; J3010; J7120; J7121

== ENCOUNTER → 2024-04-12 09:37 | Outpatient (BNVA) | payer BC, MEDICAID, SELFPAY | PROVIDERS: PCP Nurse Practitioner Family; Visit Provider Nurse Practitioner Family | DX: R93.1 Abnormal findings on diagnostic imaging of heart and coronary circulation (principal); R53.83 Other fatigue; R06.02 Shortness of breath; M54.9 Dorsalgia, unspecified; M48.061 Spinal stenosis, lumbar region without neurogenic claudication; R25.2 Cramp and spasm; F32.A Depression, unspecified; D64.9 Anemia, unspecified; F33.41 Major depressive disorder, recurrent, in partial remission | CPT/HCPCS: 80053; 80061; 84443; 85025 ==

== ENCOUNTER 2024-04-28 14:49 | Outpatient (CLI) | payer BC, MEDICAID, SELFPAY ==
--- NOTE | 2024-04-28 15:15 | USCV_ITS ---
Tana Brownlee Age: 34 Gender: F : 1990 Exam Date: 04/28/2024 15:42 Ordering Phys: Luzmaria Parada NP Technologist: CT Exam Location: [facility] [place] Indication: murmur BP: 120 / 70 HR: 60 Rhythm: Sinus Technical Quality: Adequate MEASUREMENTS (Male / Female) Normal Values 2D ECHO LVOT Diameter 2.0 cm LV Ejection Fraction MOD 2C 60.2 % LV Ejection Fraction 2C AL 59.5 % LA Diameter 4.0 cm RA Systolic Volume 4C AL 57.9 ml RA Systolic Volume 4C MOD 53.9 ml LA Sys Volume AL 70.6 cm cubed LA Sys Volume Index AL 26.9 cm cubed/m squared Aorta at Sinotubular Diameter 2.6 cm IVC Diameter 2.1 cm M-MODE LA Ao Ratio MM 1.7 AV Cusp Separation MM 2.0 cm DOPPLER AV Peak Velocity 166.0 cm/s LVOT Peak Velocity 157.0 cm/s AV Area Cont Eq vti 3.9 cm squared AV Area Cont Eq pk 3.0 cm squared MV Peak Velocity 134.0 cm/s MV Area PHT 2.9 cm squared Mitral E to A Ratio 1.4 TR Peak Velocity 294.0 cm/s TR Peak Gradient 34.6 mmHg TR Mean Velocity 226.0 cm/s TR Mean Gradient 23.0 mmHg TR Velocity Time Integral 107.2 cm TV Peak E Velocity 75.0 cm/s Right Atrial Pressure 3.0 mmHg Pulmonary Artery Systolic Pressu 37.6 mmHg PV Peak Velocity 100.5 cm/s FINDINGS Left Ventricle Normal left ventricular size, systolic function and wall thickness, with no regional wall motion abnormalities. Normal left ventricular wall thickness. Normal diastolic filling pattern. Left ventricular ejection fraction is estimated at 65 %. Right Ventricle The right ventricle is normal in size and function. Right Atrium The right atrium is normal in size. Left Atrium The left atrium is normal in size. Mitral Valve Structurally normal mitral valve without significant stenosis or prolapse. There is no mitral regurgitation. Aortic Valve Structurally normal aortic valve without significant sclerosis or stenosis. There is no aortic regurgitation. Tricuspid Valve Structurally normal tricuspid valve without significant stenosis or regurgitation. Pulmonary artery systolic pressure is normal. Pulmonic Valve Structurally normal pulmonic valve without significant stenosis. There is no pulmonic regurgitation. Pericardium Normal pericardium without effusion. Aorta Normal ascending aorta dimension. IVC The inferior vena cava appears normal. CONCLUSIONS Normal transthoracic echocardiogram. There are no prior echocardiogram studies to compare. Dr. Ishan Julien MD (Electronically Signed) Final Date: 28 Apr 2024 18:17 S
== END 2024-04-28 14:50 | disposition home or self-care (01) ==
PROVIDERS: PCP Nurse Practitioner Family; Visit Provider Nurse Practitioner Family
DX: R93.1 Abnormal findings on diagnostic imaging of heart and coronary circulation (principal); R53.83 Other fatigue; R06.02 Shortness of breath; R01.1 Cardiac murmur, unspecified
CPT/HCPCS: 93306

== ENCOUNTER → 2024-05-09 09:22 | Outpatient (BNVA) | payer BC, MEDICAID, SELFPAY | PROVIDERS: PCP Nurse Practitioner Family; Visit Provider Obstetrics & Gynecology | DX: D64.9 Anemia, unspecified (principal) | CPT/HCPCS: 85025 ==

== ENCOUNTER → 2024-12-21 11:07 | Outpatient (BNVA) | payer BC, MEDICAID, SELFPAY | PROVIDERS: PCP Nurse Practitioner Family; Visit Provider Nurse Practitioner Family | DX: M54.9 Dorsalgia, unspecified (principal); M54.30 Sciatica, unspecified side; M48.061 Spinal stenosis, lumbar region without neurogenic claudication; M47.9 Spondylosis, unspecified; R20.0 Anesthesia of skin; R20.2 Paresthesia of skin; R29.898 Other symptoms and signs involving the musculoskeletal system; M54.6 Pain in thoracic spine; G89.29 Other chronic pain; Z87.828 Personal history of other (healed) physical injury and trauma; M54.50 Low back pain, unspecified; R25.2 Cramp and spasm; G25.81 Restless legs syndrome; F41.9 Anxiety disorder, unspecified; F32.A Depression, unspecified; F60.3 Borderline personality disorder | CPT/HCPCS: 81025 ==

== ENCOUNTER 2025-02-21 14:51 | Outpatient (CLI) | payer BC, MEDICAID, SELFPAY ==
--- NOTE | 2025-02-21 14:53 | MR_ITS ---
WS: [id number] MRI LUMBAR SPINE NONCONTRAST HISTORY: DORSALGIA,UNSPECIFIED COMPARISON: None available. TECHNIQUE: Sagittal and axial multisequence imaging is submitted. L5 anterolisthesis by 3 mm. Moderate disc space narrowing and desiccation at L5-S1. Remaining discs are well preserved. Conus terminates normally at L1-2 disc level. L1-L2: Normal. L2-L3: Mild facet arthritis. No stenosis. L3-L4: Mild annular disc bulging with mild ligamentum flavum and facet arthritis. Very minimal encroachment upon the foramen. L4-L5: Mild annular disc bulging with facet joint arthropathy. Small amount of fluid in the facet joints. There is mild subarticular recess disc encroachment contacting the traversing L5 nerve roots. Mild subarticular recess and foraminal stenosis. L5-S1: Moderate diffuse annular disc bulging with osteophytic ridging and facet arthritis. There is slight disc contact on the RIGHT S1 nerve root. Bilateral foraminal disc bulging at extends into the foramina. Most significant contact on the LEFT exiting L5 nerve root. Lesser contact on the RIGHT exiting L5 nerve root. Paravertebral soft tissues are normal. MR/MR lumbar spine wo con* [id number] IMPRESSION: 1. Grade 1 anterolisthesis of L5. Anterolisthesis by 3 mm. Patient has known p ars interarticularis defects as noted on a prior CT from 2020. 2. L5-S1: Mild disc contact on the RIGHT S1 nerve root. More significant conta ct with at least moderate stenosis involving the LEFT L5-S1 foramen and mild RI GHT foraminal stenosis. There is significant disc contacting the LEFT L5 nerve root. 3. L4-5: Facet joint arthropathy with mild subarticular recess disc encroachme nt contacting the traversing L5 nerve roots. Mild subarticular recess and jose f inal stenosis.
--- NOTE | 2025-02-21 14:53 | MR_ITS ---
WS: [id number] MRI THORACIC SPINE noncontrast HISTORY: DORSALGIA,UNSPECIFIED COMPARISON: None available. TECHNIQUE: Multiplanar sequences are performed in sagittal and axial planes. C5-6: Tiny central disc protrusion. T3 hemangioma. No signal abnormality within the cord. No compression fractures. No focal disc protrusions or encroachment upon the cord. No cord compression. Conus tapers normally at T12. T1-2: Normal. T2-3: Normal. T3-4: Normal. T4-5: Mild RIGHT foraminal stenosis. T5-6: Mild facet arthritis and RIGHT foraminal stenosis. T6-7: Mild bilateral facet arthritis and LEFT foraminal stenosis. T7-8: Mild bilateral foraminal stenosis and facet arthritis. T8-9: Bilateral foraminal stenosis and facet arthritis. T9-10: Mild LEFT foraminal stenosis with bilateral facet arthritis. T10-11: Bilateral mild facet arthritis. T11-12: Normal. Paravertebral soft tissues are negative. MR/MR thoracic spin wo con* [id number] IMPRESSION: 1. No cord compression or large disc protrusions. 2. Multilevel mild facet joint arthropathy and foraminal narrowing as above. N o high-grade central stenosis. 3. T3 hemangioma.
== END 2025-02-21 14:52 | disposition home or self-care (01) ==
LOC: RAD 14:52
PROVIDERS: PCP Nurse Practitioner Family; Visit Provider Nurse Practitioner Family
DX: M48.04 Spinal stenosis, thoracic region (principal); D18.09 Hemangioma of other sites; M47.894 Other spondylosis, thoracic region
CPT/HCPCS: 72146; 72148

== ENCOUNTER → 2025-09-26 12:34 | Outpatient (BNVA) | payer BC, MEDICAID, SELFPAY | PROVIDERS: PCP Nurse Practitioner Family; Visit Provider Obstetrics & Gynecology | DX: N93.9 Abnormal uterine and vaginal bleeding, unspecified (principal) | CPT/HCPCS: 84443; 85025 ==

== ENCOUNTER → 2025-10-08 08:02 | Outpatient (BNVA) | payer BC, MEDICAID, SELFPAY | PROVIDERS: PCP Nurse Practitioner Family; Visit Provider Obstetrics & Gynecology | DX: N91.2 Amenorrhea, unspecified (principal) | CPT/HCPCS: 76830 ==

== ENCOUNTER → 2025-11-28 09:47 | Outpatient (BNVA) | payer BC, MEDICAID, SELFPAY | PROVIDERS: PCP Nurse Practitioner Family; Visit Provider Obstetrics & Gynecology | DX: N92.6 Irregular menstruation, unspecified (principal); Z34.90 Encounter for supervision of normal pregnancy, unspecified, unspecified trimester; Z32.01 Encounter for pregnancy test, result positive | CPT/HCPCS: 80307; 81025; 82950; 84443; 84702; 85025; 86592; 86762; 86803; 87086; 87340; 87491; 87591; 87661; 87806 ==